=== PATIENT | female | born 1965 | race Caucasian/White ===

== ENCOUNTER 2022-09-05 10:17 | Emergency (ER) | payer MEDICAID ==
[~2022-09-05] VITALS: Ht 162.6 cm; Wt 100.0 kg
[2022-09-05] MEDS ORDERED: sulfamethoxazole/trimethoprim DS (800/160mg) tablet PO ONE (10:30)
[2022-09-05 10:34] VITALS: BP 141/81
[2022-09-05] MEDS ORDERED: SULF1TAB49 PO (10:44)
== END 2022-09-05 13:07 | disposition home or self-care (01) ==
LOC: ER 10:18
DX: L03.116 Cellulitis of left lower limb (principal)
CPT/HCPCS: 99283

== ENCOUNTER 2022-09-07 18:38 | Inpatient (IN) | payer MEDICAID ==
[~2022-09-07] VITALS: Ht 162.6 cm; Wt 116.8 kg
[~2022-09-07 18:38] MED LIST: SULF1TAB49 PO
[2022-09-08] MEDS ORDERED: ondansetron/PF 4mg/2ml inj IV ONE ×2 (00:40→03:10)
[2022-09-08] MEDS ORDERED: normal saline 1000ML IV soln IVB ONE (00:40)
[2022-09-08 01:45] LABS: BASOPHILS % (AUTO) 0.2 % (0-1); EOSINOPHILS # (AUTO) 0.1 X10'3 (0-0.9); EOSINOPHILS % (AUTO) 0.4 % (0-6); HEMATOCRIT 34.3 % (35.0-45.0); HEMOGLOBIN 11.4 g/dl (12.0-16.0); LYMPHOCYTES # (AUTO) 1.1 X10'3 (1.1-4.8); LYMPHOCYTES % (AUTO) 6.9 % (21-51); MEAN CORPUSCULAR HEMOGLOBIN 29.1 PG (27.0-31.0); MEAN CORPUSCULAR HGB CONC 33.3 g/dL (33.0-36.5); MEAN CORPUSCULAR VOLUME 87.4 FL (78-98); MEAN PLATELET VOLUME 7.4 FL (7.4-10.4); MONOCYTES # (AUTO) 1.5 X10'3 (0-0.9); MONOCYTES % (AUTO) 9.4 % (2-12); NEUTROPHILS % (AUTO) 83.1 % (42-75); PLATELET COUNT 379 X10'3 (140-440); RED BLOOD COUNT 3.92 X10'6 (4.20-5.60); WHITE BLOOD COUNT 15.6 X10'3 (4.5-11.0)
[2022-09-08 02:00] LABS: ALANINE AMINOTRANSFERASE 35 U/L (12-78); ALBUMIN 2.8 G/DL (3.4-5.0); ALBUMIN/GLOBULIN RATIO 0.6 (1.1-1.5); ALKALINE PHOSPHATASE 239 IU/L (46-116); ANION GAP 15 (8-16); ASPARTATE AMINO TRANSFERASE 45 U/L (10-37); BILIRUBIN,TOTAL 0.4 MG/DL (0.1-1.0); BLOOD UREA NITROGEN 93 MG/DL (7-18); BUN/CREATININE RATIO 9.8 (6.6-38.0); CALCIUM 7.6 MG/DL (8.5-10.1); CHLORIDE 92 MMOL/L (99-107); CREATININE 9.46 MG/DL (0.40-0.90); GLUCOSE 121 MG/DL (70-104); POTASSIUM 3.7 MMOL/L (3.5-5.1); SODIUM 128 MMOL/L (135-145); TOTAL CARBON DIOXIDE 21.3 MMOL/L (24-32); TOTAL PROTEIN 7.3 G/DL (6.4-8.2); eGFR 4 ML/MIN
[2022-09-08] MEDS ORDERED: LIDOcaine Viscous 15ml cup MM ONE (03:10)
[2022-09-08] MEDS ORDERED: mag hydrox/Alum hydrox/simeth 30ml oral suspension PO ONE ×2 (03:10→03:45)
[2022-09-08] MEDS ORDERED: LIDOcaine 2% 10ml TOPICAL JELLY (Urojet) TP ONE (03:10)
[2022-09-08] MEDS ORDERED: LidoCAINE 2% Topical Jelly 11mL syringe TOP ONE (03:30)
[2022-09-08] MEDS ORDERED: magnesium Cl slow-release 64mg tablet PO PRN (03:50)
[2022-09-08] MEDS ORDERED: potassium Cl 40MEQ/1/2NS 520ml 520 ML IV PRN (03:50)
[2022-09-08] MEDS ORDERED: potassium Cl 20 mEq SR tablet PO PRN ×2 (03:50)
[2022-09-08] MEDS ORDERED: magnesium 4gm in 100ml NS 100 ML IV PRN (03:50)
[2022-09-08] MEDS: normal saline 1000ml 1,000 ML IV SCH ×3 (04:39→14:25)
[2022-09-08 06:59] LABS: MAGNESIUM 2.9 MG/DL (1.5-2.4)
[2022-09-08 07:00] VITALS: BP 128/67
[2022-09-08] MEDS: K and/or MAG REPLACEMENT MC SCH ×2 (08:00→20:00)
[2022-09-08] MEDS: ceFAZolin/D5W- 1GM premix 50 ML IV SCH ×3 (09:00→19:24)
--- NOTE | 2022-09-08 09:46 | NUR ---
0410 zofran reassessment not done by noc rn
[2022-09-08] MEDS: ondansetron/PF 4mg/2ml inj IV PRN (10:28)
[2022-09-08 11:00] VITALS: BP 116/68
[2022-09-08] MEDS: proCHLORperazine 10 MG/2 ml inj IV PRN (11:04)
[2022-09-08] MEDS ORDERED: acetaminophen 325mg tablet PO PRN (11:10)
[2022-09-08] MEDS ORDERED: SULF1TAB45 PO (12:50)
[2022-09-08] MEDS ORDERED: CEPH-585 PO (12:50)
[2022-09-08] MEDS ORDERED: IBUP-1984 PO (12:52)
[2022-09-08] MEDS: clindamycin 600mg/D5W 50ml 50 ML IV SCH ×2 (14:21→19:28)
[2022-09-08] MEDS ORDERED: FLU VACC QS2022-23(6MOS UP)/PF 60 MCG/0.5 ML SYRINGE IMVAC ONE (15:00)
[2022-09-08 15:35] VITALS: BP 111/51
[2022-09-08 16:21] LABS: ALBUMIN 2.2 G/DL (3.4-5.0); ANION GAP 15 (8-16); BLOOD UREA NITROGEN 92 MG/DL (7-18); BUN/CREATININE RATIO 9.4 (6.6-38.0); CALCIUM 6.9 MG/DL (8.5-10.1); CHLORIDE 94 MMOL/L (99-107); CREATININE 9.76 MG/DL (0.40-0.90); GLUCOSE 127 MG/DL (70-104); SODIUM 127 MMOL/L (135-145); TOTAL CARBON DIOXIDE 18.5 MMOL/L (24-32); eGFR 4 ML/MIN
[2022-09-08 17:47] LABS: CLARITY,URINE CLOUDY (Clear); COLOR,URINE YELLOW (Yellow); GLUCOSE, URINE NEGATIVE (Neg); KETONES,URINE NEGATIVE (Neg); LEUKOCYTE ESTERASE ,URINE NEGATIVE (Neg); NITRITES, URINE NEGATIVE (Neg); OCCULT BLOOD,URINE LARGE (Neg); PROTEIN,URINE 30 mg/dl (Neg); UROBILINOGEN,URINE 0.2 E.U/dL (0.2-1.0)
[2022-09-08 18:00] VITALS: BP 119/60
[2022-09-08 18:02] LABS: UA COLLECTION TYPE FOLEY CATH
[2022-09-08 18:15] LABS: SQUAMOUS EPITHELIAL CELL,UR MODERATE /LPF (FEW)
[2022-09-08 18:17] LABS: RBC,URINE 50-100 /HPF (0-2)
[2022-09-08 18:18] LABS: BACTERIA,URINE 1+ /HPF (Neg)
[2022-09-08 18:19] LABS: TRANSITIONAL EPI CELLS,URINE FEW /HPF; WBC,URINE 0-4 /HPF (0-4)
[2022-09-08 18:20] LABS: AMORPHOUS URATES 2+
[2022-09-08 18:45] LABS: UA EOSINOPHILS NO EOS /HPF
[2022-09-08] MEDS: Melatonin 3mg tablet PO SCH (19:20)
--- NOTE | 2022-09-08 23:10 | NUR ---
Called Dr. Rascon to make her aware that the patient has blood coming from the vaginal area, and that there is no blood in the smith catheter. Dr. Rascon stated to monitor and order hemoglobin with am labs, telephone repeat back given.
[2022-09-09] MEDS: normal saline 1000ml 1,000 ML IV SCH ×4 (00:48→23:29)
[2022-09-09] MEDS: clindamycin 600mg/D5W 50ml 50 ML IV SCH ×4 (02:00→19:45)
[2022-09-09 03:15] VITALS: BP 122/71
--- NOTE | 2022-09-09 04:55 | NUR ---
Patient has no signs or symptoms of bleeding. Patient smith catheter intact and patent.
[2022-09-09 06:00] VITALS: BP 117/61
[2022-09-09] MEDS: ondansetron/PF 4mg/2ml inj IV PRN (07:45)
[2022-09-09] MEDS: K and/or MAG REPLACEMENT MC SCH ×2 (08:00→20:00)
[2022-09-09 08:03] LABS: BASOPHILS % (AUTO) 0.4 % (0-1); EOSINOPHILS # (AUTO) 0.1 X10'3 (0-0.9); EOSINOPHILS % (AUTO) 1.1 % (0-6); HEMOGLOBIN 10.5 g/dl (12.0-16.0); LYMPHOCYTES # (AUTO) 1.4 X10'3 (1.1-4.8); MEAN CORPUSCULAR VOLUME 87.9 FL (78-98); MEAN PLATELET VOLUME 7.6 FL (7.4-10.4); MONOCYTES # (AUTO) 1.4 X10'3 (0-0.9); NEUTROPHILS # (AUTO) 9.7 X10'3 (1.8-7.7); NEUTROPHILS % (AUTO) 76.5 % (42-75); PLATELET COUNT 428 X10'3 (140-440); RED BLOOD COUNT 3.64 X10'6 (4.20-5.60); RED CELL DISTRIBUTION WIDTH 14.3 % (11.5-14.5); WHITE BLOOD COUNT 12.7 X10'3 (4.5-11.0)
[2022-09-09 08:10] LABS: ALBUMIN 2.3 G/DL (3.4-5.0); ANION GAP 15 (8-16); BLOOD UREA NITROGEN 95 MG/DL (7-18); BUN/CREATININE RATIO 9.6 (6.6-38.0); CALCIUM 7.2 MG/DL (8.5-10.1); CHLORIDE 97 MMOL/L (99-107); CREATININE 9.88 MG/DL (0.40-0.90); GLUCOSE 92 MG/DL (70-104); POTASSIUM 4.3 MMOL/L (3.5-5.1); SODIUM 132 MMOL/L (135-145); TOTAL CARBON DIOXIDE 20.1 MMOL/L (24-32); eGFR 4 ML/MIN
[2022-09-09] MEDS: proCHLORperazine 10 MG/2 ml inj IV PRN ×2 (09:26→19:49)
--- NOTE | 2022-09-09 09:26 | NUR ---
Emailed pharmacy for missing AM Ancef
--- NOTE | 2022-09-09 10:10 | NUR ---
Advised Dr Khan of vaginal bleeding. No pain associated with bleeding. Dr Khan ordered CT of abd/pelvis, no contrast.
[2022-09-09] MEDS: ceFAZolin/D5W- 1GM premix 50 ML IV SCH ×3 (10:23→23:29)
[2022-09-09 10:30] VITALS: BP 115/65
[2022-09-09 14:30] VITALS: BP 121/68
--- NOTE | 2022-09-09 16:45 | NUR ---
Per Dr Khan: ok to cancel duplicate UA.
[2022-09-09 18:00] VITALS: BP 141/64
--- NOTE | 2022-09-09 18:00 | NUR ---
Student documentation: I have reviewed and agree with all interventions, assessments performed and documented by Ann Marie.
--- NOTE | 2022-09-09 18:30 | NUR ---
Patient in room PCU 3026. I have received report from Sharifa OSULLIVAN and had the opportunity to ask questions and assume patient care.
--- NOTE | 2022-09-09 19:23 | NUR ---
Student Medication Administration: For this medication-pass time frame, all medication were reviewed, dispensed, administered and documented per hospital policy by Ann Marie.
[2022-09-09] MEDS: Melatonin 3mg tablet PO SCH (21:49)
[2022-09-09 22:00] VITALS: BP 131/64
[2022-09-10] MEDS: clindamycin 600mg/D5W 50ml 50 ML IV SCH ×4 (01:44→19:48)
[2022-09-10 02:00] VITALS: BP 120/66
[2022-09-10] MEDS: proCHLORperazine 10 MG/2 ml inj IV PRN ×3 (02:11→22:17)
[2022-09-10 02:16] LABS: CLARITY,URINE CLOUDY (Clear); COLOR,URINE YELLOW (Yellow); GLUCOSE, URINE NEGATIVE (Neg); KETONES,URINE NEGATIVE (Neg); LEUKOCYTE ESTERASE ,URINE NEGATIVE (Neg); NITRITES, URINE NEGATIVE (Neg); OCCULT BLOOD,URINE LARGE (Neg); PROTEIN,URINE 30 mg/dl (Neg); UROBILINOGEN,URINE 0.2 E.U/dL (0.2-1.0)
[2022-09-10 02:20] LABS: UA COLLECTION TYPE FOLEY CATH
[2022-09-10 02:31] LABS: RBC,URINE 20-50 /HPF (0-2)
[2022-09-10 02:32] LABS: SQUAMOUS EPITHELIAL CELL,UR FEW /LPF (FEW)
[2022-09-10 02:34] LABS: TOTAL PROTEIN,URINE RANDOM 88.2 MG/DL
[2022-09-10 02:35] LABS: BACTERIA,URINE FEW /HPF (Neg); TRANSITIONAL EPI CELLS,URINE FEW /HPF
[2022-09-10 02:36] LABS: CELLULAR CAST 0-4 /LPF (NEGATIVE); COARSE GRANULAR CAST 0-3 /LPF (NEGATIVE); RENAL CELLS, URINE FEW /HPF
[2022-09-10 03:06] LABS: UA EOSINOPHILS NO EOS /HPF
[2022-09-10] MEDS: normal saline 1000ml 1,000 ML IV SCH ×3 (03:28→16:51)
[2022-09-10 05:45] LABS: BASOPHILS # (AUTO) 0.1 X10'3 (0-0.2); BASOPHILS % (AUTO) 0.5 % (0-1); EOSINOPHILS # (AUTO) 0.2 X10'3 (0-0.9); EOSINOPHILS % (AUTO) 1.6 % (0-6); HEMATOCRIT 30.2 % (35.0-45.0); HEMOGLOBIN 10.2 g/dl (12.0-16.0); LYMPHOCYTES # (AUTO) 1.1 X10'3 (1.1-4.8); MEAN CORPUSCULAR HEMOGLOBIN 29.8 PG (27.0-31.0); MEAN CORPUSCULAR HGB CONC 33.9 g/dL (33.0-36.5); MEAN CORPUSCULAR VOLUME 87.8 FL (78-98); MONOCYTES # (AUTO) 1.3 X10'3 (0-0.9); MONOCYTES % (AUTO) 9.5 % (2-12); NEUTROPHILS # (AUTO) 11.1 X10'3 (1.8-7.7); NEUTROPHILS % (AUTO) 80.4 % (42-75); PLATELET COUNT 428 X10'3 (140-440); RED BLOOD COUNT 3.44 X10'6 (4.20-5.60); RED CELL DISTRIBUTION WIDTH 14.5 % (11.5-14.5); WHITE BLOOD COUNT 13.8 X10'3 (4.5-11.0)
[2022-09-10 05:53] LABS: ALBUMIN 2.1 G/DL (3.4-5.0); ANION GAP 13 (8-16); BLOOD UREA NITROGEN 100 MG/DL (7-18); CALCIUM 7.2 MG/DL (8.5-10.1); CHLORIDE 101 MMOL/L (99-107); CREATININE 9.98 MG/DL (0.40-0.90); GLUCOSE 101 MG/DL (70-104); MAGNESIUM 2.8 MG/DL (1.5-2.4); POTASSIUM 4.4 MMOL/L (3.5-5.1); SODIUM 132 MMOL/L (135-145); TOTAL CARBON DIOXIDE 17.9 MMOL/L (24-32); eGFR 4 ML/MIN
--- NOTE | 2022-09-10 06:01 | NUR ---
Problems reprioritized. Patient report given, questions answered & plan of care reviewed with SAM OSULLIVAN.
[2022-09-10 07:00] VITALS: BP 132/73
[2022-09-10 07:28] LABS: PLATELET ESTIMATE NORMAL; TOTAL CELLS COUNTED 100
[2022-09-10] MEDS: ceFAZolin/D5W- 1GM premix 50 ML IV SCH ×2 (08:00→16:12)
[2022-09-10] MEDS: K and/or MAG REPLACEMENT MC SCH ×2 (08:00→19:49)
[2022-09-10 11:00] VITALS: BP 145/71
[2022-09-10 15:00] VITALS: BP 129/64
[2022-09-10 18:00] VITALS: BP 140/64
--- NOTE | 2022-09-10 18:14 | NUR ---
Problems reprioritized. Patient report given, questions answered & plan of care reviewed with Porter RN.Patient resting in bed in no acute distress.
--- NOTE | 2022-09-10 18:46 | NUR ---
Patient in room PCU 3026. I have received report from AMITA OSULLIVAN and had the opportunity to ask questions and assume patient care.
[2022-09-10] MEDS: Melatonin 3mg tablet PO SCH (19:55)
[2022-09-10 22:00] VITALS: BP 150/71
[2022-09-11 02:00] VITALS: BP 145/70
[2022-09-11] MEDS: clindamycin 600mg/D5W 50ml 50 ML IV SCH ×4 (02:00→19:59)
[2022-09-11] MEDS: normal saline 1000ml 1,000 ML IV SCH ×4 (04:46→20:08)
[2022-09-11 05:47] LABS: BASOPHILS # (AUTO) 0.1 X10'3 (0-0.2); BASOPHILS % (AUTO) 0.8 % (0-1); EOSINOPHILS # (AUTO) 0.1 X10'3 (0-0.9); EOSINOPHILS % (AUTO) 0.9 % (0-6); HEMATOCRIT 30.3 % (35.0-45.0); HEMOGLOBIN 9.9 g/dl (12.0-16.0); LYMPHOCYTES # (AUTO) 1.2 X10'3 (1.1-4.8); LYMPHOCYTES % (AUTO) 7.6 % (21-51); MEAN CORPUSCULAR HEMOGLOBIN 28.8 PG (27.0-31.0); MEAN CORPUSCULAR HGB CONC 32.7 g/dL (33.0-36.5); MEAN CORPUSCULAR VOLUME 88.2 FL (78-98); MONOCYTES # (AUTO) 1.2 X10'3 (0-0.9); MONOCYTES % (AUTO) 7.8 % (2-12); NEUTROPHILS % (AUTO) 82.9 % (42-75); PLATELET COUNT 427 X10'3 (140-440); RED BLOOD COUNT 3.44 X10'6 (4.20-5.60); RED CELL DISTRIBUTION WIDTH 14.5 % (11.5-14.5); WHITE BLOOD COUNT 15.7 X10'3 (4.5-11.0)
[2022-09-11 06:08] LABS: ALBUMIN 2.1 G/DL (3.4-5.0); ANION GAP 16 (8-16); BLOOD UREA NITROGEN 95 MG/DL (7-18); BUN/CREATININE RATIO 9.4 (6.6-38.0); CALCIUM 7.7 MG/DL (8.5-10.1); CHLORIDE 103 MMOL/L (99-107); CREATININE 10.16 MG/DL (0.40-0.90); GLUCOSE 112 MG/DL (70-104); MAGNESIUM 2.6 MG/DL (1.5-2.4); POTASSIUM 4.6 MMOL/L (3.5-5.1); SODIUM 135 MMOL/L (135-145); TOTAL CARBON DIOXIDE 15.9 MMOL/L (24-32); eGFR 4 ML/MIN
--- NOTE | 2022-09-11 06:22 | NUR ---
Patient in room PCU 3026. I have received report from Georgette OSULLIVAN and had the opportunity to ask questions and assume patient care.Patient resting in bed in no acute distress.
--- NOTE | 2022-09-11 06:33 | NUR ---
Problems reprioritized. Patient report given, questions answered & plan of care reviewed with TARAH OSULLIVAN.
[2022-09-11 07:00] VITALS: BP 142/74
[2022-09-11] MEDS ORDERED: FLU VACC QS2022-23(6MOS UP)/PF 60 MCG/0.5 ML SYRINGE IMVAC ONE (08:00)
[2022-09-11] MEDS: K and/or MAG REPLACEMENT MC SCH ×2 (08:00→20:00)
--- NOTE | 2022-09-11 09:00 | NUR ---
PRESSURE ULCER EDUCATION: DEFINITION: A pressure ulcer is an area of skin that breaks down when you stay in one position too long. The constant pressure against the skin reduces the blood flow to that area and the affected tissue dies. CAUSES: "Being bedridden or in a wheelchair "Fragile skin "Having a chronic condition, such as diabetes or vascular disease "Inability to move certain parts of your body without assistance "Older age "Incontinence of urine or stool SYMPTOMS: "A reddened area that DOES NOT turn white when pressed on - this can be the beginning of a pressure ulcer "A blister, deep sore or a crater - these can be advanced pressure ulcers FIRST AID: "Relieve the pressure on this area "Keep the area clean and dry "Call your primary doctor if you see any of the above symptoms "DO NOT massage the area "DO NOT use a donut shaped or ring shaped pillow- these actually interfere with the blood flow and cause complications PREVENTION: "Check for pressure ulcers everyday "Change position at least every two hours to relieve pressure "Use items that help relieve pressure- pillows, sheepskin, foam padding, and powders. "Keep skin clean and dry "Eat healthy well balanced meals "Exercise daily IF YOU SEE ANY OF THESE SYMPTOMS WHILE IN THE HOSPITAL - TELL YOUR NURSE IMMEDIATELY. IF YOU SEE ANY OF THESE SYMPTOMS WHILE AT HOME OR HAVE ANY QUESTIONS OR CONCERNS ABOUT PRESSURE ULCERS - CALL YOUR PRIMARY DOCTOR IMMEDIATELY. Addendum: 09/11/22 at 0900 by Annmarie Moore RN Amended: Links added.
[2022-09-11] MEDS: ceFAZolin/D5W- 1GM premix 50 ML IV SCH ×3 (09:06→14:54)
[2022-09-11 11:00] VITALS: BP 152/93
[2022-09-11] MEDS: proCHLORperazine 10 MG/2 ml inj IV PRN ×2 (11:46→19:59)
[2022-09-11 15:00] VITALS: BP 152/73
--- NOTE | 2022-09-11 15:29 | NUR ---
Page Sent promotional table spacer PAGER ID: [phone] MESSAGE: [id number]. DOROTHY Pt has been HTN all day with systolic in 140s-150s. I thought it was high at 1100 because she had just finished vomiting. Aria @[id number] (146 character message out of a maximum of 240) CLOSE [X]
--- NOTE | 2022-09-11 18:20 | NUR ---
Problems reprioritized. Patient report given, questions answered & plan of care reviewed with [place] RN. Patient resting in bed in no acute distress.
[2022-09-11 19:36] VITALS: BP 171/77
[2022-09-11] MEDS: Melatonin 3mg tablet PO SCH (19:59)
[2022-09-11 22:00] VITALS: BP 113/62
[2022-09-12] MEDS: ceFAZolin/D5W- 1GM premix 50 ML IV SCH (00:14)
[2022-09-12] MEDS: ondansetron/PF 4mg/2ml inj IV PRN (01:36)
[2022-09-12] MEDS: clindamycin 600mg/D5W 50ml 50 ML IV SCH ×2 (01:37→07:41)
[2022-09-12] MEDS: normal saline 1000ml 1,000 ML IV SCH ×3 (01:48→15:30)
[2022-09-12 06:07] LABS: BASOPHILS # (AUTO) 0.1 X10'3 (0-0.2); BASOPHILS % (AUTO) 0.4 % (0-1); EOSINOPHILS # (AUTO) 0.2 X10'3 (0-0.9); HEMATOCRIT 29.9 % (35.0-45.0); HEMOGLOBIN 9.8 g/dl (12.0-16.0); LYMPHOCYTES # (AUTO) 1.1 X10'3 (1.1-4.8); LYMPHOCYTES % (AUTO) 6.3 % (21-51); MEAN CORPUSCULAR HEMOGLOBIN 29.5 PG (27.0-31.0); MEAN CORPUSCULAR HGB CONC 32.8 g/dL (33.0-36.5); MEAN CORPUSCULAR VOLUME 89.9 FL (78-98); MEAN PLATELET VOLUME 6.6 FL (7.4-10.4); MONOCYTES # (AUTO) 1.4 X10'3 (0-0.9); MONOCYTES % (AUTO) 7.9 % (2-12); NEUTROPHILS # (AUTO) 14.8 X10'3 (1.8-7.7); NEUTROPHILS % (AUTO) 84.4 % (42-75); PLATELET COUNT 380 X10'3 (140-440); RED BLOOD COUNT 3.32 X10'6 (4.20-5.60); RED CELL DISTRIBUTION WIDTH 14.5 % (11.5-14.5); WHITE BLOOD COUNT 17.6 X10'3 (4.5-11.0)
[2022-09-12 06:14] LABS: ANION GAP 12 (8-16); BLOOD UREA NITROGEN 88 MG/DL (7-18); BUN/CREATININE RATIO 9.1 (6.6-38.0); CALCIUM 8.1 MG/DL (8.5-10.1); CHLORIDE 106 MMOL/L (99-107); CREATININE 9.65 MG/DL (0.40-0.90); GLUCOSE 104 MG/DL (70-104); MAGNESIUM 2.5 MG/DL (1.5-2.4); POTASSIUM 4.8 MMOL/L (3.5-5.1); SODIUM 136 MMOL/L (135-145); eGFR 4 ML/MIN
[2022-09-12 07:00] VITALS: BP 152/80
[2022-09-12] MEDS: K and/or MAG REPLACEMENT MC SCH ×2 (08:00→20:00)
[2022-09-12] MEDS ORDERED: vancomycin/NS 1 GM ADD-VANTAGE 250 ML IV ONE (09:30)
[2022-09-12] MEDS ORDERED: vancomycin/NS 1 GM ADD-VANTAGE 250 ML IV PRN (09:40)
[2022-09-12] MEDS ORDERED: hydrALAZINE 20mg/ml inj. IV PRN (10:50)
--- NOTE | 2022-09-12 10:57 | NUR ---
I spoke with personal secretary at [facility] and she said she would fax over last labs.
[2022-09-12 11:00] VITALS: BP 145/76
[2022-09-12] MEDS: piperacillin/tazo 3.375gm/50ml 50 ML IV SCH ×2 (11:43→16:29)
[2022-09-12 15:00] VITALS: BP 142/72
[2022-09-12] MEDS: proCHLORperazine 10 MG/2 ml inj IV PRN ×2 (15:30→22:09)
[2022-09-12 18:00] VITALS: BP 151/76
--- NOTE | 2022-09-12 18:00 | NUR ---
Patient in room PCU 3026. I have received report from Aria OSULLIVAN and had the opportunity to ask questions and assume patient care.
--- NOTE | 2022-09-12 18:21 | NUR ---
Problems reprioritized. Patient report given, questions answered & plan of care reviewed with Jennifer OSULLIVAN. Patient resting in bed in no acute distress.
[2022-09-12 22:00] VITALS: BP 148/79
[2022-09-12] MEDS: Melatonin 3mg tablet PO SCH (22:02)
[2022-09-13] MEDS: normal saline 1000ml 1,000 ML IV SCH ×4 (00:49→18:08)
[2022-09-13 02:00] VITALS: BP 146/81
[2022-09-13] MEDS: proCHLORperazine 10 MG/2 ml inj IV PRN ×3 (04:58→21:21)
[2022-09-13 06:00] VITALS: BP 144/70
[2022-09-13 06:16] LABS: BASOPHILS # (AUTO) 0.1 X10'3 (0-0.2); BASOPHILS % (AUTO) 0.5 % (0-1); EOSINOPHILS # (AUTO) 0.3 X10'3 (0-0.9); EOSINOPHILS % (AUTO) 1.7 % (0-6); HEMATOCRIT 28.7 % (35.0-45.0); HEMOGLOBIN 9.6 g/dl (12.0-16.0); LYMPHOCYTES # (AUTO) 1.3 X10'3 (1.1-4.8); MEAN CORPUSCULAR HEMOGLOBIN 29.6 PG (27.0-31.0); MEAN CORPUSCULAR HGB CONC 33.6 g/dL (33.0-36.5); MEAN CORPUSCULAR VOLUME 88.1 FL (78-98); MEAN PLATELET VOLUME 6.7 FL (7.4-10.4); MONOCYTES # (AUTO) 1.4 X10'3 (0-0.9); MONOCYTES % (AUTO) 7.4 % (2-12); NEUTROPHILS # (AUTO) 15.2 X10'3 (1.8-7.7); NEUTROPHILS % (AUTO) 83.4 % (42-75); PLATELET COUNT 355 X10'3 (140-440); RED BLOOD COUNT 3.25 X10'6 (4.20-5.60); RED CELL DISTRIBUTION WIDTH 14.2 % (11.5-14.5); WHITE BLOOD COUNT 18.3 X10'3 (4.5-11.0)
[2022-09-13 06:24] LABS: ANION GAP 15 (8-16); BLOOD UREA NITROGEN 90 MG/DL (7-18); BUN/CREATININE RATIO 9.5 (6.6-38.0); CALCIUM 8.1 MG/DL (8.5-10.1); CHLORIDE 106 MMOL/L (99-107); CREATININE 9.46 MG/DL (0.40-0.90); GLUCOSE 101 MG/DL (70-104); POTASSIUM 4.6 MMOL/L (3.5-5.1); SODIUM 137 MMOL/L (135-145); TOTAL CARBON DIOXIDE 15.6 MMOL/L (24-32); VANCOMYCIN,RANDOM 9.5 UG/ML; eGFR 4 ML/MIN
--- NOTE | 2022-09-13 06:35 | NUR ---
Problems reprioritized. Patient report given, questions answered & plan of care reviewed with Yary OSULLIVAN.
[2022-09-13] MEDS ORDERED: vancomycin/NS 1 GM ADD-VANTAGE 250 ML IV ONE (07:20)
[2022-09-13] MEDS: piperacillin/tazo 3.375gm/50ml 50 ML IV SCH ×2 (07:44→21:18)
[2022-09-13] MEDS: K and/or MAG REPLACEMENT MC SCH ×2 (08:00→20:00)
[2022-09-13] MEDS ORDERED: HYDROcodone/acetaminophen 5mg/325mg tablet PO PRN (10:25)
[2022-09-13] MEDS ORDERED: HYDROcodone/acetaminophen 10/325mg tab PO PRN (10:25)
--- NOTE | 2022-09-13 12:26 | NUR ---
Initial: Per H&P pt recently dx with left leg cellulitis presented with c/o N/V, admit for BEAU with hyponatremia and cellulitis. Pt seen by wound care, per report pt with LLE cellulitis and skin is intact. Thoracic Surgeon following for renal status. Pt currently on a renal diet with fluctuating PO intake, documented with average 66% PO intake since admit which meets 87% estimated energy needs and 100% estimated protein needs. Noted pt up to average 75% PO intake of two most recent meals. LB 09/12. No nutrition intervention implemented at this time. Will continue to follow. Recommendations: 1) Liberalize to regular diet once renal function improves 2) Routine bowel care 3) Weekly scaled weights Addendum: 09/13/22 at [address] Amended: Links added.
[2022-09-13 15:00] VITALS: BP 137/68
--- NOTE | 2022-09-13 15:22 | NUR ---
WOUND INFECTION EDUCATION PROVIDED BY WOUND CARE 1. Patient instructed to call their primary doctor, or go the ED immediately if any of the following symptoms occur: * Increased pain in wound * Increase in drainage from the wound * Redness in the skin surrounding the wound * Warmth in the skin surrounding the wound * Bleeding from the wound * Temperature of 101 or greater 2. If any of these occur while in the hospital tell a nurse immediately. Addendum: 09/13/22 at 1522 by Smitha Sidhu LVN Amended: Links added.
[2022-09-13 18:00] VITALS: BP 143/94
--- NOTE | 2022-09-13 18:00 | NUR ---
Patient in room PCU 3026. I have received report from Yary OSULLIVAN and had the opportunity to ask questions and assume patient care.
[2022-09-13] MEDS: Melatonin 3mg tablet PO SCH (21:17)
[2022-09-13 22:00] VITALS: BP 136/85
[2022-09-14] MEDS: normal saline 1000ml 1,000 ML IV SCH ×2 (00:56→07:55)
[2022-09-14] MEDS ORDERED: VANCOMYCIN LEVEL IV SCH (03:00)
[2022-09-14 06:00] VITALS: BP 160/84
[2022-09-14] MEDS: proCHLORperazine 10 MG/2 ml inj IV PRN ×3 (06:07→18:02)
[2022-09-14 06:27] LABS: VANCOMYCIN,RANDOM 19.5 UG/ML
--- NOTE | 2022-09-14 06:31 | NUR ---
Problems reprioritized. Patient report given, questions answered & plan of care reviewed with Yary OSULLIVAN.
[2022-09-14 07:34] LABS: BASOPHILS # (AUTO) 0.1 X10'3 (0-0.2); BASOPHILS % (AUTO) 0.7 % (0-1); EOSINOPHILS # (AUTO) 0.3 X10'3 (0-0.9); EOSINOPHILS % (AUTO) 1.9 % (0-6); HEMATOCRIT 28.2 % (35.0-45.0); LYMPHOCYTES # (AUTO) 1.1 X10'3 (1.1-4.8); LYMPHOCYTES % (AUTO) 6.2 % (21-51); MEAN CORPUSCULAR HEMOGLOBIN 28.8 PG (27.0-31.0); MEAN CORPUSCULAR HGB CONC 31.9 g/dL (33.0-36.5); MEAN CORPUSCULAR VOLUME 90.2 FL (78-98); MEAN PLATELET VOLUME 6.8 FL (7.4-10.4); MONOCYTES # (AUTO) 1.2 X10'3 (0-0.9); MONOCYTES % (AUTO) 7.4 % (2-12); NEUTROPHILS # (AUTO) 14.1 X10'3 (1.8-7.7); NEUTROPHILS % (AUTO) 83.8 % (42-75); PLATELET COUNT 298 X10'3 (140-440); RED BLOOD COUNT 3.13 X10'6 (4.20-5.60); RED CELL DISTRIBUTION WIDTH 14.3 % (11.5-14.5); WHITE BLOOD COUNT 16.8 X10'3 (4.5-11.0)
[2022-09-14 07:35] LABS: ALBUMIN 1.9 G/DL (3.4-5.0); ALBUMIN/GLOBULIN RATIO 0.4 (1.1-1.5); ALKALINE PHOSPHATASE 116 IU/L (46-116); ANION GAP 13 (8-16); ASPARTATE AMINO TRANSFERASE 24 U/L (10-37); BILIRUBIN,TOTAL 0.3 MG/DL (0.1-1.0); BLOOD UREA NITROGEN 88 MG/DL (7-18); BUN/CREATININE RATIO 9.5 (6.6-38.0); CALCIUM 8.2 MG/DL (8.5-10.1); CHLORIDE 108 MMOL/L (99-107); CREATININE 9.27 MG/DL (0.40-0.90); GLUCOSE 89 MG/DL (70-104); MAGNESIUM 2.3 MG/DL (1.5-2.4); SODIUM 138 MMOL/L (135-145); TOTAL CARBON DIOXIDE 16.9 MMOL/L (24-32); TOTAL PROTEIN 6.3 G/DL (6.4-8.2); eGFR 4 ML/MIN
[2022-09-14 07:48] LABS: ALANINE AMINOTRANSFERASE < 6 U/L (12-78); PHOSPHORUS 9.2 MG/DL (2.3-4.5)
[2022-09-14] MEDS: piperacillin/tazo 3.375gm/50ml 50 ML IV SCH (07:55)
[2022-09-14] MEDS: K and/or MAG REPLACEMENT MC SCH ×2 (08:00→20:00)
--- NOTE | 2022-09-14 09:55 | NUR ---
sent to [facility]: [id number] Flores: pt requesting neosporin ointment for scabs around mouth. thank you. Yary OSULLIVAN [id number]
[2022-09-14 11:00] VITALS: BP 152/77
[2022-09-14] MEDS ORDERED: bumetanide 0.25mg/ml 4ml vial IV ONE (12:45)
[2022-09-14 18:00] VITALS: BP 162/79
--- NOTE | 2022-09-14 18:00 | NUR ---
Patient in room PCU 3026. I have received report from Yary OSULLIVAN and had the opportunity to ask questions and assume patient care.
[2022-09-14 22:00] VITALS: BP 142/78
[2022-09-14] MEDS: ondansetron/PF 4mg/2ml inj IV PRN (22:04)
[2022-09-14] MEDS: Melatonin 3mg tablet PO SCH (22:05)
[2022-09-14] MEDS: bumetanide 0.25mg/ml 4ml vial IV SCH (22:05)
[2022-09-14] MEDS: linezolid 600mg/300ml PREMIX 300 ML IV SCH (22:57)
[2022-09-15 02:00] VITALS: BP 132/74
--- NOTE | 2022-09-15 06:50 | NUR ---
Patient in room PCU 3026. I have received report from Jennifer OSULLIVAN and had the opportunity to ask questions and assume patient care. Pt requesting wound care be performed to left leg. [employer] Sales Representative will follow up with wound care.
[2022-09-15 07:00] VITALS: BP 151/81
--- NOTE | 2022-09-15 07:01 | NUR ---
Problems reprioritized. Patient report given, questions answered & plan of care reviewed with Tone GRAMAJO.
[2022-09-15] MEDS: K and/or MAG REPLACEMENT MC SCH ×2 (08:00→20:00)
[2022-09-15] MEDS: linezolid 600mg/300ml PREMIX 300 ML IV SCH ×2 (08:19→22:45)
[2022-09-15] MEDS: bumetanide 0.25mg/ml 4ml vial IV SCH ×2 (08:19→22:46)
[2022-09-15 09:01] LABS: BASOPHILS # (AUTO) 0.1 X10'3 (0-0.2); BASOPHILS % (AUTO) 0.8 % (0-1); EOSINOPHILS # (AUTO) 0.4 X10'3 (0-0.9); EOSINOPHILS % (AUTO) 2.2 % (0-6); HEMATOCRIT 28.4 % (35.0-45.0); HEMOGLOBIN 9.1 g/dl (12.0-16.0); LYMPHOCYTES # (AUTO) 1.3 X10'3 (1.1-4.8); LYMPHOCYTES % (AUTO) 7.8 % (21-51); MEAN CORPUSCULAR HEMOGLOBIN 29.1 PG (27.0-31.0); MEAN PLATELET VOLUME 6.6 FL (7.4-10.4); MONOCYTES % (AUTO) 5.8 % (2-12); NEUTROPHILS # (AUTO) 14.1 X10'3 (1.8-7.7); NEUTROPHILS % (AUTO) 83.4 % (42-75); PLATELET COUNT 316 X10'3 (140-440); RED BLOOD COUNT 3.12 X10'6 (4.20-5.60); RED CELL DISTRIBUTION WIDTH 14.5 % (11.5-14.5); WHITE BLOOD COUNT 16.9 X10'3 (4.5-11.0)
[2022-09-15 09:36] LABS: ALBUMIN/GLOBULIN RATIO 0.4 (1.1-1.5); ALKALINE PHOSPHATASE 160 IU/L (46-116); ANION GAP 17 (8-16); ASPARTATE AMINO TRANSFERASE 42 U/L (10-37); BILIRUBIN,TOTAL 0.3 MG/DL (0.1-1.0); BLOOD UREA NITROGEN 84 MG/DL (7-18); BUN/CREATININE RATIO 10.2 (6.6-38.0); CALCIUM 8.4 MG/DL (8.5-10.1); CHLORIDE 105 MMOL/L (99-107); CREATININE 8.25 MG/DL (0.40-0.90); GLUCOSE 129 MG/DL (70-104); MAGNESIUM 2.1 MG/DL (1.5-2.4); PHOSPHORUS 8.5 MG/DL (2.3-4.5); POTASSIUM 4.5 MMOL/L (3.5-5.1); SODIUM 137 MMOL/L (135-145); TOTAL PROTEIN 6.6 G/DL (6.4-8.2); eGFR 5 ML/MIN
[2022-09-15 09:51] LABS: ALANINE AMINOTRANSFERASE < 6 U/L (12-78)
--- NOTE | 2022-09-15 09:57 | NUR ---
MD Kennedy Page Sent PAGER ID: [phone] MESSAGE: [id number] Flores- Critical value. Pt CO2 15. Pt breathing on RAJenifer Diana Levine LVN SEND ANOTHER PAGE Addendum: 09/15/22 at [address] Dumont notified. He ordered Sodium Bicarbonate PO 650mg PO TID. Order readback.
[2022-09-15 11:00] VITALS: BP 169/81
[2022-09-15] MEDS: sodium bicarbonate 650mg tablet PO SCH ×3 (11:32→22:01)
--- NOTE | 2022-09-15 13:50 | NUR ---
Noted pt started on Linezolid. Pt seen at bedside for written and verbal low tyramine nutrition therapy education. All of patient's questions were answered at this time. RD contact information provided and pt encouraged to reach out if needed. Pt endorses a good appetite and states no N/V today or yesterday. Pt states she has been unable to finish a full tray since admit and reports consuming mostly 50-75% PO intake of meals. Pt denies food allergies or difficulty chewing/swallowing. Will continue to follow. Addendum: 09/15/22 at [address] Amended: Links added.
--- NOTE | 2022-09-15 17:42 | NUR ---
I AGREE WITH CATE CENTRAL STERILE TECHNICIAN ASSESSMENT.
[2022-09-15 18:00] VITALS: BP 179/89
--- NOTE | 2022-09-15 18:10 | NUR ---
Patient in room PCU 3026. I have received report from Tone GRAMAJO and had the opportunity to ask questions and assume patient care.
--- NOTE | 2022-09-15 18:24 | NUR ---
Problems reprioritized. Patient report given, questions answered & plan of care reviewed with Fartun GRAMAJO.
[2022-09-15 22:00] VITALS: BP 180/91
[2022-09-15] MEDS: Melatonin 3mg tablet PO SCH (22:01)
[2022-09-16 02:00] VITALS: BP 149/80
--- NOTE | 2022-09-16 06:23 | NUR ---
Problems reprioritized. Patient report given, questions answered & plan of care reviewed with Tone GALICIA .
[2022-09-16 06:28] LABS: BASOPHILS # (AUTO) 0.1 X10'3 (0-0.2); BASOPHILS % (AUTO) 0.8 % (0-1); EOSINOPHILS # (AUTO) 0.3 X10'3 (0-0.9); EOSINOPHILS % (AUTO) 2.1 % (0-6); HEMATOCRIT 27.5 % (35.0-45.0); HEMOGLOBIN 8.8 g/dl (12.0-16.0); LYMPHOCYTES # (AUTO) 1.1 X10'3 (1.1-4.8); LYMPHOCYTES % (AUTO) 7.7 % (21-51); MEAN CORPUSCULAR HEMOGLOBIN 29.2 PG (27.0-31.0); MEAN CORPUSCULAR VOLUME 91.1 FL (78-98); MEAN PLATELET VOLUME 6.9 FL (7.4-10.4); MONOCYTES # (AUTO) 1.3 X10'3 (0-0.9); MONOCYTES % (AUTO) 8.8 % (2-12); NEUTROPHILS # (AUTO) 11.9 X10'3 (1.8-7.7); NEUTROPHILS % (AUTO) 80.6 % (42-75); PLATELET COUNT 303 X10'3 (140-440); RED BLOOD COUNT 3.02 X10'6 (4.20-5.60); WHITE BLOOD COUNT 14.7 X10'3 (4.5-11.0)
--- NOTE | 2022-09-16 06:40 | NUR ---
Patient in room PCU 3026. I have received report from Fartun GRAMAJO and had the opportunity to ask questions and assume patient care. Pt sleeping, no distress noted, eyes closed.
[2022-09-16 06:44] LABS: ALANINE AMINOTRANSFERASE < 6 U/L (12-78); ALBUMIN 1.9 G/DL (3.4-5.0); ALBUMIN/GLOBULIN RATIO 0.4 (1.1-1.5); ALKALINE PHOSPHATASE 163 IU/L (46-116); ANION GAP 15 (8-16); ASPARTATE AMINO TRANSFERASE 29 U/L (10-37); BILIRUBIN,TOTAL 0.3 MG/DL (0.1-1.0); BLOOD UREA NITROGEN 81 MG/DL (7-18); BUN/CREATININE RATIO 10.5 (6.6-38.0); CALCIUM 8.4 MG/DL (8.5-10.1); CHLORIDE 107 MMOL/L (99-107); CREATININE 7.69 MG/DL (0.40-0.90); GLUCOSE 95 MG/DL (70-104); MAGNESIUM 2.1 MG/DL (1.5-2.4); PHOSPHORUS 8.8 MG/DL (2.3-4.5); POTASSIUM 4.8 MMOL/L (3.5-5.1); SODIUM 141 MMOL/L (135-145); TOTAL CARBON DIOXIDE 18.8 MMOL/L (24-32); TOTAL PROTEIN 6.4 G/DL (6.4-8.2); eGFR 5 ML/MIN
[2022-09-16 07:00] VITALS: BP 161/87
[2022-09-16] MEDS: bumetanide 0.25mg/ml 4ml vial IV SCH ×2 (07:38→20:47)
[2022-09-16] MEDS: linezolid 600mg/300ml PREMIX 300 ML IV SCH ×2 (07:39→20:46)
--- NOTE | 2022-09-16 07:53 | NUR ---
Agree with Jessica MEDICAL LAB TECH INSTRUCTOR assessment except where I documented my findings.
[2022-09-16] MEDS: K and/or MAG REPLACEMENT MC SCH ×2 (08:00→20:00)
--- NOTE | 2022-09-16 08:00 | NUR ---
Pt refused bed bath. Pt agreed to wound care Addendum: 09/16/22 at 1423 by Tone Levine LVN Amended: Links added.
[2022-09-16] MEDS: proCHLORperazine 10 MG/2 ml inj IV PRN (08:10)
[2022-09-16] MEDS: vitamin A & D ointment-NF 1 APPLIC TUBE TP SCH (08:15)
[2022-09-16] MEDS: sodium bicarbonate 650mg tablet PO SCH ×3 (08:15→20:15)
[2022-09-16] MEDS ORDERED: PERFLUTREN PROTEIN-A MICROSPHR (Optison) 0.22 MG/ML 3ML VIAL IV ONE (09:00)
[2022-09-16 11:00] VITALS: BP 160/77
--- NOTE | 2022-09-16 11:14 | NUR ---
Paged Page Sent PAGER ID: [phone] MESSAGE: [id number] Flores- wbc trending down 16.9 to 14.7, CO2 improving 18.8, ProBNP elevated 1266. L. Levine CHUTE MAN
--- NOTE | 2022-09-16 17:24 | NUR ---
I AGREE WITH CATE PHYSICIST ASTROPHYSICS ASSESSMENT.
[2022-09-16 18:00] VITALS: BP 162/95
--- NOTE | 2022-09-16 18:25 | NUR ---
Problems reprioritized. Patient report given, questions answered & plan of care reviewed with Fartun GRAMAJO.
--- NOTE | 2022-09-16 18:30 | NUR ---
Patient in room PCU 3026. I have received report from Tone GRAMAJO and had the opportunity to ask questions and assume patient care.
[2022-09-16] MEDS: mupirocin 2% ointment 22GM TP SCH (20:00)
[2022-09-16] MEDS: Melatonin 3mg tablet PO SCH (20:15)
[2022-09-16] MEDS: metoprolol tartrate 12.5mg (1/2 tablet) PO SCH (20:17)
[2022-09-16 22:00] VITALS: BP 146/80
--- NOTE | 2022-09-17 04:29 | NUR ---
Agree with Jessica PUGGER HELPER assessment except where I documented my findings.
[2022-09-17] MEDS: ondansetron/PF 4mg/2ml inj IV PRN (05:33)
--- NOTE | 2022-09-17 06:42 | NUR ---
Problems reprioritized. Patient report given, questions answered & plan of care reviewed with Britt OSULLIVAN.
[2022-09-17 07:00] VITALS: BP 155/86
[2022-09-17 07:02] LABS: BASOPHILS # (AUTO) 0.1 X10'3 (0-0.2); BASOPHILS % (AUTO) 0.6 % (0-1); EOSINOPHILS # (AUTO) 0.3 X10'3 (0-0.9); EOSINOPHILS % (AUTO) 2.3 % (0-6); HEMATOCRIT 30.2 % (35.0-45.0); HEMOGLOBIN 9.9 g/dl (12.0-16.0); LYMPHOCYTES # (AUTO) 1.4 X10'3 (1.1-4.8); LYMPHOCYTES % (AUTO) 9.4 % (21-51); MEAN CORPUSCULAR HEMOGLOBIN 29.4 PG (27.0-31.0); MEAN CORPUSCULAR HGB CONC 32.8 g/dL (33.0-36.5); MEAN CORPUSCULAR VOLUME 89.7 FL (78-98); MEAN PLATELET VOLUME 6.9 FL (7.4-10.4); MONOCYTES # (AUTO) 1.2 X10'3 (0-0.9); MONOCYTES % (AUTO) 7.7 % (2-12); NEUTROPHILS # (AUTO) 12.1 X10'3 (1.8-7.7); PLATELET COUNT 365 X10'3 (140-440); RED BLOOD COUNT 3.37 X10'6 (4.20-5.60); RED CELL DISTRIBUTION WIDTH 14.1 % (11.5-14.5); WHITE BLOOD COUNT 15.1 X10'3 (4.5-11.0)
[2022-09-17 07:25] LABS: ALANINE AMINOTRANSFERASE 8 U/L (12-78); ALBUMIN 2.3 G/DL (3.4-5.0); ALBUMIN/GLOBULIN RATIO 0.5 (1.1-1.5); ALKALINE PHOSPHATASE 196 IU/L (46-116); ANION GAP 13 (8-16); ASPARTATE AMINO TRANSFERASE 43 U/L (10-37); BILIRUBIN,TOTAL 0.4 MG/DL (0.1-1.0); BLOOD UREA NITROGEN 79 MG/DL (7-18); BUN/CREATININE RATIO 11.4 (6.6-38.0); CALCIUM 8.7 MG/DL (8.5-10.1); CHLORIDE 105 MMOL/L (99-107); CREATININE 6.91 MG/DL (0.40-0.90); GLUCOSE 100 MG/DL (70-104); MAGNESIUM 1.9 MG/DL (1.5-2.4); POTASSIUM 4.2 MMOL/L (3.5-5.1); SODIUM 140 MMOL/L (135-145); TOTAL CARBON DIOXIDE 21.7 MMOL/L (24-32); TOTAL PROTEIN 7.3 G/DL (6.4-8.2); eGFR 6 ML/MIN
[2022-09-17] MEDS: K and/or MAG REPLACEMENT MC SCH ×2 (08:00→19:36)
[2022-09-17] MEDS: metoprolol tartrate 12.5mg (1/2 tablet) PO SCH ×2 (08:51→20:49)
[2022-09-17] MEDS: linezolid 600mg/300ml PREMIX 300 ML IV SCH (08:51)
[2022-09-17] MEDS: bumetanide 0.25mg/ml 4ml vial IV SCH ×2 (08:51→22:41)
[2022-09-17] MEDS: mupirocin 2% ointment 22GM TP SCH ×2 (08:51→20:48)
[2022-09-17] MEDS: vitamin A & D ointment-NF 1 APPLIC TUBE TP SCH (09:32)
[2022-09-17] MEDS: sodium bicarbonate 650mg tablet PO SCH ×3 (09:32→20:49)
[2022-09-17 11:00] VITALS: BP 157/83
[2022-09-17 15:00] VITALS: BP 142/72
[2022-09-17 18:00] VITALS: BP 162/87
--- NOTE | 2022-09-17 18:34 | NUR ---
Problems reprioritized. Patient report given, questions answered & plan of care reviewed with Fartun GRAMAJO. Patient resting in bed in no acute distress.
[2022-09-17] MEDS: linezolid 600mg tablet PO SCH (20:48)
[2022-09-17] MEDS: Melatonin 3mg tablet PO SCH (20:55)
[2022-09-17 22:00] VITALS: BP 152/81
[2022-09-17] MEDS: HYDROcodone/acetaminophen 10/325mg tab PO PRN (22:42)
[2022-09-18] MEDS: ondansetron/PF 4mg/2ml inj IV PRN ×2 (05:30→11:27)
[2022-09-18 07:00] VITALS: BP 135/75
[2022-09-18 07:41] LABS: BASOPHILS # (AUTO) 0.1 X10'3 (0-0.2); BASOPHILS % (AUTO) 0.8 % (0-1); EOSINOPHILS # (AUTO) 0.3 X10'3 (0-0.9); EOSINOPHILS % (AUTO) 2.2 % (0-6); HEMATOCRIT 29.8 % (35.0-45.0); HEMOGLOBIN 9.7 g/dl (12.0-16.0); LYMPHOCYTES # (AUTO) 1.3 X10'3 (1.1-4.8); LYMPHOCYTES % (AUTO) 8.6 % (21-51); MEAN CORPUSCULAR HEMOGLOBIN 29.2 PG (27.0-31.0); MEAN CORPUSCULAR HGB CONC 32.4 g/dL (33.0-36.5); MEAN PLATELET VOLUME 7.1 FL (7.4-10.4); MONOCYTES # (AUTO) 1.4 X10'3 (0-0.9); MONOCYTES % (AUTO) 9.1 % (2-12); NEUTROPHILS # (AUTO) 12.2 X10'3 (1.8-7.7); NEUTROPHILS % (AUTO) 79.3 % (42-75); PLATELET COUNT 375 X10'3 (140-440); RED BLOOD COUNT 3.31 X10'6 (4.20-5.60); RED CELL DISTRIBUTION WIDTH 13.8 % (11.5-14.5); WHITE BLOOD COUNT 15.4 X10'3 (4.5-11.0)
[2022-09-18] MEDS: bumetanide 0.25mg/ml 4ml vial IV SCH ×2 (07:53→20:13)
[2022-09-18 07:57] LABS: ALANINE AMINOTRANSFERASE 15 U/L (12-78); ALBUMIN 2.3 G/DL (3.4-5.0); ALBUMIN/GLOBULIN RATIO 0.5 (1.1-1.5); ALKALINE PHOSPHATASE 196 IU/L (46-116); ANION GAP 14 (8-16); ASPARTATE AMINO TRANSFERASE 48 U/L (10-37); BILIRUBIN,TOTAL 0.4 MG/DL (0.1-1.0); BLOOD UREA NITROGEN 78 MG/DL (7-18); BUN/CREATININE RATIO 12.5 (6.6-38.0); CALCIUM 8.6 MG/DL (8.5-10.1); CHLORIDE 104 MMOL/L (99-107); CREATININE 6.22 MG/DL (0.40-0.90); GLUCOSE 91 MG/DL (70-104); MAGNESIUM 1.8 MG/DL (1.5-2.4); PHOSPHORUS 8.3 MG/DL (2.3-4.5); POTASSIUM 4.3 MMOL/L (3.5-5.1); SODIUM 141 MMOL/L (135-145); TOTAL CARBON DIOXIDE 23.3 MMOL/L (24-32); TOTAL PROTEIN 7.2 G/DL (6.4-8.2); eGFR 7 ML/MIN
[2022-09-18] MEDS: vitamin A & D ointment-NF 1 APPLIC TUBE TP SCH (08:00)
[2022-09-18] MEDS: K and/or MAG REPLACEMENT MC SCH ×2 (08:00→19:08)
[2022-09-18] MEDS: mupirocin 2% ointment 22GM TP SCH ×2 (08:00→20:13)
[2022-09-18] MEDS: metoprolol tartrate 12.5mg (1/2 tablet) PO SCH ×2 (08:56→20:13)
[2022-09-18] MEDS: linezolid 600mg tablet PO SCH ×2 (08:56→20:13)
[2022-09-18 11:00] VITALS: BP 130/70
[2022-09-18 12:26] VITALS: BP 152/82
--- NOTE | 2022-09-18 15:26 | NUR ---
F/u 09/18: Pt PO improving mostly ~75-100% recent meals meeting estimated needs. LBM 09/16 per EMR. No nutrition interventions at this time. Will continue to follow. Recommendations: 1) Liberalize to regular diet once renal function improves 2) Routine bowel care 3) daily scaled weights Addendum: 09/18/22 at [address] Amended: Links added.
[2022-09-18] MEDS: ondansetron 4mg rapidly disintigrating tab PO PRN (17:22)
[2022-09-18 18:00] VITALS: BP 118/76
--- NOTE | 2022-09-18 18:18 | NUR ---
gave report to rose wiley
[2022-09-18] MEDS: Melatonin 3mg tablet PO SCH (20:13)
[2022-09-18 22:00] VITALS: BP 123/68
[2022-09-19] MEDS: ondansetron 4mg rapidly disintigrating tab PO PRN (05:49)
[2022-09-19 06:00] VITALS: BP 135/80
[2022-09-19 07:00] LABS: BASOPHILS # (AUTO) 0.1 X10'3 (0-0.2); EOSINOPHILS # (AUTO) 0.3 X10'3 (0-0.9); EOSINOPHILS % (AUTO) 2.4 % (0-6); HEMATOCRIT 28.2 % (35.0-45.0); LYMPHOCYTES # (AUTO) 1.3 X10'3 (1.1-4.8); LYMPHOCYTES % (AUTO) 10.1 % (21-51); MEAN CORPUSCULAR HEMOGLOBIN 28.5 PG (27.0-31.0); MEAN CORPUSCULAR HGB CONC 31.7 g/dL (33.0-36.5); MEAN CORPUSCULAR VOLUME 89.7 FL (78-98); MONOCYTES # (AUTO) 1.2 X10'3 (0-0.9); MONOCYTES % (AUTO) 9.4 % (2-12); NEUTROPHILS # (AUTO) 9.9 X10'3 (1.8-7.7); NEUTROPHILS % (AUTO) 77.1 % (42-75); PLATELET COUNT 390 X10'3 (140-440); RED BLOOD COUNT 3.15 X10'6 (4.20-5.60); RED CELL DISTRIBUTION WIDTH 13.8 % (11.5-14.5); WHITE BLOOD COUNT 12.8 X10'3 (4.5-11.0)
[2022-09-19 07:19] LABS: ALANINE AMINOTRANSFERASE 13 U/L (12-78); ALBUMIN 2.4 G/DL (3.4-5.0); ALBUMIN/GLOBULIN RATIO 0.5 (1.1-1.5); ALKALINE PHOSPHATASE 192 IU/L (46-116); ANION GAP 12 (8-16); ASPARTATE AMINO TRANSFERASE 38 U/L (10-37); BILIRUBIN,TOTAL 0.3 MG/DL (0.1-1.0); BLOOD UREA NITROGEN 78 MG/DL (7-18); BUN/CREATININE RATIO 13.5 (6.6-38.0); CALCIUM 8.6 MG/DL (8.5-10.1); CHLORIDE 105 MMOL/L (99-107); CREATININE 5.76 MG/DL (0.40-0.90); GLUCOSE 90 MG/DL (70-104); MAGNESIUM 1.7 MG/DL (1.5-2.4); PHOSPHORUS 7.8 MG/DL (2.3-4.5); SODIUM 141 MMOL/L (135-145); TOTAL PROTEIN 7.4 G/DL (6.4-8.2); eGFR 8 ML/MIN
[2022-09-19] MEDS: bumetanide 0.25mg/ml 4ml vial IV SCH ×2 (07:40→21:03)
[2022-09-19] MEDS: linezolid 600mg tablet PO SCH ×2 (07:43→21:03)
[2022-09-19] MEDS: metoprolol tartrate 12.5mg (1/2 tablet) PO SCH ×2 (07:47→21:03)
[2022-09-19] MEDS: K and/or MAG REPLACEMENT MC SCH ×2 (08:00→19:47)
[2022-09-19 10:03] VITALS: BP 141/82
[2022-09-19 14:00] VITALS: BP 135/73
[2022-09-19] MEDS: vitamin A & D ointment-NF 1 APPLIC TUBE TP SCH (15:15)
[2022-09-19] MEDS: mupirocin 2% ointment 22GM TP SCH ×2 (15:15→21:03)
[2022-09-19] MEDS: ondansetron/PF 4mg/2ml inj IV PRN (17:30)
[2022-09-19 18:00] VITALS: BP 144/79
--- NOTE | 2022-09-19 18:48 | NUR ---
Report to Linn OSULLIVAN
[2022-09-19] MEDS: Melatonin 3mg tablet PO SCH (21:03)
[2022-09-19 22:00] VITALS: BP 129/74
[2022-09-20 06:13] LABS: BASOPHILS # (AUTO) 0.1 X10'3 (0-0.2); BASOPHILS % (AUTO) 1.2 % (0-1); EOSINOPHILS # (AUTO) 0.3 X10'3 (0-0.9); EOSINOPHILS % (AUTO) 2.6 % (0-6); HEMATOCRIT 26.9 % (35.0-45.0); HEMOGLOBIN 8.8 g/dl (12.0-16.0); LYMPHOCYTES # (AUTO) 1.2 X10'3 (1.1-4.8); LYMPHOCYTES % (AUTO) 12.3 % (21-51); MEAN CORPUSCULAR HEMOGLOBIN 29.3 PG (27.0-31.0); MEAN CORPUSCULAR HGB CONC 32.7 g/dL (33.0-36.5); MEAN CORPUSCULAR VOLUME 89.6 FL (78-98); MEAN PLATELET VOLUME 6.9 FL (7.4-10.4); MONOCYTES # (AUTO) 1.1 X10'3 (0-0.9); MONOCYTES % (AUTO) 10.5 % (2-12); NEUTROPHILS # (AUTO) 7.4 X10'3 (1.8-7.7); NEUTROPHILS % (AUTO) 73.4 % (42-75); PLATELET COUNT 362 X10'3 (140-440); RED CELL DISTRIBUTION WIDTH 13.6 % (11.5-14.5); WHITE BLOOD COUNT 10.1 X10'3 (4.5-11.0)
[2022-09-20 06:36] LABS: ALANINE AMINOTRANSFERASE 23 U/L (12-78); ALBUMIN 2.3 G/DL (3.4-5.0); ALBUMIN/GLOBULIN RATIO 0.5 (1.1-1.5); ALKALINE PHOSPHATASE 241 IU/L (46-116); ANION GAP 10 (8-16); ASPARTATE AMINO TRANSFERASE 51 U/L (10-37); BILIRUBIN,TOTAL 0.3 MG/DL (0.1-1.0); BLOOD UREA NITROGEN 76 MG/DL (7-18); BUN/CREATININE RATIO 14.5 (6.6-38.0); CALCIUM 8.4 MG/DL (8.5-10.1); CHLORIDE 106 MMOL/L (99-107); CREATININE 5.25 MG/DL (0.40-0.90); GLUCOSE 101 MG/DL (70-104); MAGNESIUM 1.8 MG/DL (1.5-2.4); PHOSPHORUS 6.6 MG/DL (2.3-4.5); POTASSIUM 3.7 MMOL/L (3.5-5.1); SODIUM 142 MMOL/L (135-145); TOTAL CARBON DIOXIDE 26.1 MMOL/L (24-32); TOTAL PROTEIN 7.3 G/DL (6.4-8.2); eGFR 9 ML/MIN
[2022-09-20 07:20] VITALS: BP 116/54
[2022-09-20] MEDS: ondansetron 4mg rapidly disintigrating tab PO PRN (07:50)
[2022-09-20] MEDS: metoprolol tartrate 12.5mg (1/2 tablet) PO SCH ×2 (07:51→20:25)
[2022-09-20] MEDS: K and/or MAG REPLACEMENT MC SCH ×2 (08:00→20:00)
[2022-09-20] MEDS: bumetanide 0.25mg/ml 4ml vial IV SCH ×2 (08:00→20:25)
[2022-09-20] MEDS: mupirocin 2% ointment 22GM TP SCH ×2 (12:04→20:25)
[2022-09-20] MEDS: linezolid 600mg tablet PO SCH ×2 (12:09→20:25)
[2022-09-20] MEDS: vitamin A & D ointment-NF 1 APPLIC TUBE TP SCH (12:50)
--- NOTE | 2022-09-20 14:43 | NUR ---
WOUND INFECTION EDUCATION PROVIDED BY WOUND CARE 1. Patient instructed to call their primary doctor, or go the ED immediately if any of the following symptoms occur: * Increased pain in wound * Increase in drainage from the wound * Redness in the skin surrounding the wound * Warmth in the skin surrounding the wound * Bleeding from the wound * Temperature of 101 or greater 2. If any of these occur while in the hospital tell a nurse immediately. Addendum: 09/20/22 at 1443 by Smitha Sidhu LVN Amended: Links added.
[2022-09-20] MEDS: Melatonin 3mg tablet PO SCH (20:25)
[2022-09-20] MEDS: HYDROcodone/acetaminophen 10/325mg tab PO PRN (20:26)
[2022-09-20 20:28] VITALS: BP 124/66
[2022-09-20 22:30] VITALS: BP 130/71
[2022-09-21] MEDS: ondansetron/PF 4mg/2ml inj IV PRN (01:13)
[2022-09-21 01:49] VITALS: BP 129/75
[2022-09-21 06:00] VITALS: BP 135/75
[2022-09-21 06:10] LABS: BASOPHILS # (AUTO) 0.1 X10'3 (0-0.2); BASOPHILS % (AUTO) 1.6 % (0-1); EOSINOPHILS # (AUTO) 0.4 X10'3 (0-0.9); EOSINOPHILS % (AUTO) 4.2 % (0-6); HEMATOCRIT 28.2 % (35.0-45.0); HEMOGLOBIN 9.5 g/dl (12.0-16.0); LYMPHOCYTES # (AUTO) 1.6 X10'3 (1.1-4.8); LYMPHOCYTES % (AUTO) 18.7 % (21-51); MEAN CORPUSCULAR HGB CONC 33.6 g/dL (33.0-36.5); MEAN CORPUSCULAR VOLUME 89.1 FL (78-98); MEAN PLATELET VOLUME 6.6 FL (7.4-10.4); MONOCYTES # (AUTO) 0.8 X10'3 (0-0.9); MONOCYTES % (AUTO) 9.1 % (2-12); NEUTROPHILS # (AUTO) 5.7 X10'3 (1.8-7.7); NEUTROPHILS % (AUTO) 66.4 % (42-75); PLATELET COUNT 362 X10'3 (140-440); RED BLOOD COUNT 3.17 X10'6 (4.20-5.60); RED CELL DISTRIBUTION WIDTH 13.5 % (11.5-14.5); WHITE BLOOD COUNT 8.6 X10'3 (4.5-11.0)
[2022-09-21 06:24] LABS: ALANINE AMINOTRANSFERASE 20 U/L (12-78); ALBUMIN 2.5 G/DL (3.4-5.0); ALBUMIN/GLOBULIN RATIO 0.5 (1.1-1.5); ALKALINE PHOSPHATASE 207 IU/L (46-116); ANION GAP 10 (8-16); ASPARTATE AMINO TRANSFERASE 39 U/L (10-37); BILIRUBIN,TOTAL 0.3 MG/DL (0.1-1.0); BLOOD UREA NITROGEN 68 MG/DL (7-18); BUN/CREATININE RATIO 14.6 (6.6-38.0); CALCIUM 8.8 MG/DL (8.5-10.1); CHLORIDE 105 MMOL/L (99-107); CREATININE 4.65 MG/DL (0.40-0.90); GLUCOSE 88 MG/DL (70-104); MAGNESIUM 1.7 MG/DL (1.5-2.4); PHOSPHORUS 7.2 MG/DL (2.3-4.5); POTASSIUM 3.7 MMOL/L (3.5-5.1); SODIUM 142 MMOL/L (135-145); TOTAL CARBON DIOXIDE 26.6 MMOL/L (24-32); TOTAL PROTEIN 7.6 G/DL (6.4-8.2); eGFR 10 ML/MIN
--- NOTE | 2022-09-21 07:06 | NUR ---
Patient in room ORTHO 4023. I have received report from SHI Brown and had the opportunity to ask questions and assume patient care.
[2022-09-21] MEDS: K and/or MAG REPLACEMENT MC SCH ×2 (07:21→19:54)
[2022-09-21] MEDS: metoprolol tartrate 12.5mg (1/2 tablet) PO SCH ×2 (07:29→20:34)
[2022-09-21] MEDS: mupirocin 2% ointment 22GM TP SCH ×2 (07:29→20:29)
[2022-09-21] MEDS: linezolid 600mg tablet PO SCH ×2 (07:29→20:35)
[2022-09-21] MEDS: vitamin A & D ointment-NF 1 APPLIC TUBE TP SCH (07:29)
[2022-09-21] MEDS: ondansetron 4mg rapidly disintigrating tab PO PRN ×2 (07:30→21:51)
--- NOTE | 2022-09-21 08:54 | NUR ---
Smith care with appropriate smith wipes performed.
[2022-09-21 10:00] VITALS: BP 149/80
[2022-09-21] MEDS: bumetanide 0.25mg/ml 4ml vial IV SCH ×2 (10:13→20:34)
--- NOTE | 2022-09-21 14:39 | NUR ---
PAGER ID: [phone] MESSAGE: Yvonne [id number] RE: Jasmine Flores room 4023A - patient states fluid intake increased to 2500 ml by MD. No record of that. Do you want to increase fluid intake?
--- NOTE | 2022-09-21 14:40 | NUR ---
Pagecésar Ross who confirmed that fluid intake has been increased to 2500 ml.
--- NOTE | 2022-09-21 18:25 | NUR ---
Problems reprioritized. Patient report given, questions answered & plan of care reviewed with SHI Edwards.
[2022-09-21] MEDS: Melatonin 3mg tablet PO SCH (20:35)
[2022-09-21 22:00] VITALS: BP 125/69
[2022-09-22 02:00] VITALS: BP 141/67
[2022-09-22 06:00] VITALS: BP 122/69
[2022-09-22 06:06] LABS: BASOPHILS # (AUTO) 0.1 X10'3 (0-0.2); BASOPHILS % (AUTO) 1.5 % (0-1); EOSINOPHILS # (AUTO) 0.4 X10'3 (0-0.9); EOSINOPHILS % (AUTO) 4.5 % (0-6); HEMATOCRIT 30.1 % (35.0-45.0); HEMOGLOBIN 9.8 g/dl (12.0-16.0); LYMPHOCYTES # (AUTO) 1.8 X10'3 (1.1-4.8); LYMPHOCYTES % (AUTO) 19.8 % (21-51); MEAN CORPUSCULAR HGB CONC 32.6 g/dL (33.0-36.5); MEAN CORPUSCULAR VOLUME 88.8 FL (78-98); MEAN PLATELET VOLUME 6.6 FL (7.4-10.4); MONOCYTES # (AUTO) 0.8 X10'3 (0-0.9); MONOCYTES % (AUTO) 8.7 % (2-12); NEUTROPHILS # (AUTO) 5.9 X10'3 (1.8-7.7); NEUTROPHILS % (AUTO) 65.5 % (42-75); PLATELET COUNT 408 X10'3 (140-440); RED BLOOD COUNT 3.39 X10'6 (4.20-5.60); RED CELL DISTRIBUTION WIDTH 13.5 % (11.5-14.5)
[2022-09-22 06:27] LABS: ALANINE AMINOTRANSFERASE 22 U/L (12-78); ALBUMIN 2.7 G/DL (3.4-5.0); ALBUMIN/GLOBULIN RATIO 0.5 (1.1-1.5); ALKALINE PHOSPHATASE 212 IU/L (46-116); ANION GAP 11 (8-16); ASPARTATE AMINO TRANSFERASE 45 U/L (10-37); BILIRUBIN,TOTAL 0.4 MG/DL (0.1-1.0); BLOOD UREA NITROGEN 62 MG/DL (7-18); BUN/CREATININE RATIO 14.2 (6.6-38.0); CALCIUM 8.9 MG/DL (8.5-10.1); CHLORIDE 103 MMOL/L (99-107); CREATININE 4.36 MG/DL (0.40-0.90); GLUCOSE 88 MG/DL (70-104); MAGNESIUM 1.7 MG/DL (1.5-2.4); POTASSIUM 3.6 MMOL/L (3.5-5.1); SODIUM 142 MMOL/L (135-145); TOTAL CARBON DIOXIDE 28.4 MMOL/L (24-32); TOTAL PROTEIN 8.2 G/DL (6.4-8.2); eGFR 11 ML/MIN
[2022-09-22] MEDS: K and/or MAG REPLACEMENT MC SCH ×2 (08:00→20:00)
[2022-09-22] MEDS: linezolid 600mg tablet PO SCH ×2 (08:19→19:36)
[2022-09-22] MEDS: metoprolol tartrate 12.5mg (1/2 tablet) PO SCH ×2 (08:19→19:36)
[2022-09-22] MEDS: bumetanide 0.25mg/ml 4ml vial IV SCH (08:19)
[2022-09-22] MEDS: mupirocin 2% ointment 22GM TP SCH ×2 (08:21→19:37)
[2022-09-22] MEDS: vitamin A & D ointment-NF 1 APPLIC TUBE TP SCH (08:21)
--- NOTE | 2022-09-22 09:54 | NUR ---
Problems reprioritized. Patient report given, questions answered & plan of care reviewed with ROX Mixon. Per Sami Ortiz inpatient nursing aide I am handing off my patient load to ROX Mixon and I am now resource nurse.
--- NOTE | 2022-09-22 09:58 | NUR ---
Patient in room ORTHO 4023. I have received report from SHI Russell and had the opportunity to ask questions and assume patient care.
[2022-09-22 10:00] VITALS: BP 124/72
[2022-09-22] MEDS: ondansetron/PF 4mg/2ml inj IV PRN (12:29)
--- NOTE | 2022-09-22 15:19 | NUR ---
I agree with the Physical Assessment conducted and charted by Apurva Tovar Addendum: 09/22/22 at 1519 by Yvonne Lopez RN Amended: Links added.
[2022-09-22 18:00] VITALS: BP 138/74
--- NOTE | 2022-09-22 18:22 | NUR ---
Problems reprioritized. Patient report given, questions answered & plan of care reviewed with SHI Elizabeth.
--- NOTE | 2022-09-22 18:48 | NUR ---
Patient in room ORTHO 4023. I have received report from ROX Mixon and had the opportunity to ask questions and assume patient care.
[2022-09-22] MEDS: bumetanide 1mg tablet PO SCH (19:36)
[2022-09-22] MEDS: Melatonin 3mg tablet PO SCH (21:56)
[2022-09-22 22:00] VITALS: BP 142/78
[2022-09-23 06:00] VITALS: BP 179/83
--- NOTE | 2022-09-23 06:18 | NUR ---
Problems reprioritized. Patient report given, questions answered & plan of care reviewed with SHI Russell.
--- NOTE | 2022-09-23 06:26 | NUR ---
Patient in room ORTHO 4023. I have received report from SHI Elizabeth and had the opportunity to ask questions and assume patient care.
[2022-09-23] MEDS: ondansetron/PF 4mg/2ml inj IV PRN (06:33)
[2022-09-23 06:56] LABS: BASOPHILS # (AUTO) 0.1 X10'3 (0-0.2); BASOPHILS % (AUTO) 1.4 % (0-1); EOSINOPHILS # (AUTO) 0.4 X10'3 (0-0.9); EOSINOPHILS % (AUTO) 5.1 % (0-6); HEMATOCRIT 33.3 % (35.0-45.0); HEMOGLOBIN 10.7 g/dl (12.0-16.0); LYMPHOCYTES # (AUTO) 1.7 X10'3 (1.1-4.8); MEAN CORPUSCULAR HEMOGLOBIN 29.1 PG (27.0-31.0); MEAN CORPUSCULAR HGB CONC 32.2 g/dL (33.0-36.5); MEAN CORPUSCULAR VOLUME 90.3 FL (78-98); MEAN PLATELET VOLUME 6.7 FL (7.4-10.4); MONOCYTES # (AUTO) 0.7 X10'3 (0-0.9); MONOCYTES % (AUTO) 8.2 % (2-12); NEUTROPHILS # (AUTO) 5.2 X10'3 (1.8-7.7); NEUTROPHILS % (AUTO) 64.3 % (42-75); PLATELET COUNT 386 X10'3 (140-440); RED BLOOD COUNT 3.68 X10'6 (4.20-5.60); RED CELL DISTRIBUTION WIDTH 13.3 % (11.5-14.5); WHITE BLOOD COUNT 8.1 X10'3 (4.5-11.0)
[2022-09-23 07:05] LABS: ALANINE AMINOTRANSFERASE 16 U/L (12-78); ALBUMIN 2.9 G/DL (3.4-5.0); ALBUMIN/GLOBULIN RATIO 0.5 (1.1-1.5); ALKALINE PHOSPHATASE 193 IU/L (46-116); ANION GAP 13 (8-16); ASPARTATE AMINO TRANSFERASE 35 U/L (10-37); BILIRUBIN,TOTAL 0.4 MG/DL (0.1-1.0); BLOOD UREA NITROGEN 61 MG/DL (7-18); BUN/CREATININE RATIO 14.7 (6.6-38.0); CALCIUM 9.3 MG/DL (8.5-10.1); CHLORIDE 102 MMOL/L (99-107); CREATININE 4.15 MG/DL (0.40-0.90); GLUCOSE 84 MG/DL (70-104); MAGNESIUM 1.8 MG/DL (1.5-2.4); POTASSIUM 3.4 MMOL/L (3.5-5.1); SODIUM 142 MMOL/L (135-145); TOTAL CARBON DIOXIDE 27.2 MMOL/L (24-32); TOTAL PROTEIN 8.7 G/DL (6.4-8.2); eGFR 11 ML/MIN
[2022-09-23] MEDS: K and/or MAG REPLACEMENT MC SCH ×2 (08:00→20:00)
[2022-09-23] MEDS: bumetanide 1mg tablet PO SCH (08:41)
[2022-09-23] MEDS: metoprolol tartrate 12.5mg (1/2 tablet) PO SCH ×2 (08:42→20:40)
[2022-09-23] MEDS: mupirocin 2% ointment 22GM TP SCH ×2 (08:42→20:40)
[2022-09-23] MEDS: linezolid 600mg tablet PO SCH ×2 (08:42→20:40)
[2022-09-23] MEDS: vitamin A & D ointment-NF 1 APPLIC TUBE TP SCH (08:43)
[2022-09-23 10:00] VITALS: BP 145/78
[2022-09-23 13:18] LABS: H PYLORI ANTIBODY NEGATIVE (Neg)
[2022-09-23] MEDS ORDERED: magnesium Cl slow-release 64mg tablet PO PRN (15:05)
[2022-09-23] MEDS ORDERED: potassium Cl 20 mEq SR tablet PO PRN (15:05)
[2022-09-23] MEDS: potassium Cl 20 mEq SR tablet PO PRN ×2 (15:37→20:42)
[2022-09-23 18:00] VITALS: BP 128/75
--- NOTE | 2022-09-23 18:04 | NUR ---
Renal consult: Pt not on dialysis and electrolytes remain WNL with the exception of low K and elevated phos, currently not on a phos binder. Pt receiving PRN KCl replacement. Nephrology following. Per notes pt with persistent N/V today and to be NPO after midnight for EGD tomorrow. Nutrition education not appropriate at this time. Will f/u at another time and provide education as appropriate. Addendum: 09/23/22 at [address] Amended: Links added.
--- NOTE | 2022-09-23 18:22 | NUR ---
Problems reprioritized. Patient report given, questions answered & plan of care reviewed with SHI Elizabeth.
--- NOTE | 2022-09-23 18:38 | NUR ---
Patient in room ORTHO 4023. I have received report from SHI Russell and had the opportunity to ask questions and assume patient care.
[2022-09-23] MEDS: famotidine 20mg tablet PO SCH (20:40)
[2022-09-23] MEDS: furosemide 20MG tablet PO SCH (20:40)
[2022-09-23] MEDS: Melatonin 3mg tablet PO SCH (20:40)
[2022-09-23] MEDS ORDERED: diphenhydrAMINE 25mg capsule PO ONE (21:55)
[2022-09-23 22:00] VITALS: BP 149/85
[2022-09-24] VITALS (13 sets, daily range): BP systolic 120–168; BP diastolic 55–97
--- NOTE | 2022-09-24 06:12 | NUR ---
Problems reprioritized. Patient report given, questions answered & plan of care reviewed with SHI Funez.
[2022-09-24 06:13] LABS: BASOPHILS # (AUTO) 0.2 X10'3 (0-0.2); EOSINOPHILS # (AUTO) 0.4 X10'3 (0-0.9); EOSINOPHILS % (AUTO) 5.7 % (0-6); HEMATOCRIT 29.9 % (35.0-45.0); HEMOGLOBIN 9.8 g/dl (12.0-16.0); LYMPHOCYTES # (AUTO) 1.8 X10'3 (1.1-4.8); LYMPHOCYTES % (AUTO) 23.5 % (21-51); MEAN CORPUSCULAR HEMOGLOBIN 29.2 PG (27.0-31.0); MEAN CORPUSCULAR HGB CONC 32.7 g/dL (33.0-36.5); MEAN CORPUSCULAR VOLUME 89.3 FL (78-98); MEAN PLATELET VOLUME 6.6 FL (7.4-10.4); MONOCYTES # (AUTO) 0.7 X10'3 (0-0.9); MONOCYTES % (AUTO) 9.4 % (2-12); NEUTROPHILS # (AUTO) 4.5 X10'3 (1.8-7.7); NEUTROPHILS % (AUTO) 59.4 % (42-75); PLATELET COUNT 335 X10'3 (140-440); RED BLOOD COUNT 3.34 X10'6 (4.20-5.60); RED CELL DISTRIBUTION WIDTH 13.2 % (11.5-14.5); WHITE BLOOD COUNT 7.6 X10'3 (4.5-11.0)
[2022-09-24 06:14] LABS: ALANINE AMINOTRANSFERASE 14 U/L (12-78); ALBUMIN 2.7 G/DL (3.4-5.0); ALBUMIN/GLOBULIN RATIO 0.5 (1.1-1.5); ALKALINE PHOSPHATASE 148 IU/L (46-116); ANION GAP 11 (8-16); ASPARTATE AMINO TRANSFERASE 28 U/L (10-37); BILIRUBIN,TOTAL 0.3 MG/DL (0.1-1.0); BLOOD UREA NITROGEN 59 MG/DL (7-18); BUN/CREATININE RATIO 17.2 (6.6-38.0); CALCIUM 9.1 MG/DL (8.5-10.1); CHLORIDE 106 MMOL/L (99-107); CREATININE 3.43 MG/DL (0.40-0.90); GLUCOSE 90 MG/DL (70-104); MAGNESIUM 1.9 MG/DL (1.5-2.4); POTASSIUM 3.6 MMOL/L (3.5-5.1); SODIUM 144 MMOL/L (135-145); TOTAL CARBON DIOXIDE 26.9 MMOL/L (24-32); TOTAL PROTEIN 7.9 G/DL (6.4-8.2); eGFR 14 ML/MIN
[2022-09-24] MEDS: K and/or MAG REPLACEMENT MC SCH ×2 (08:00→20:00)
[2022-09-24] MEDS: famotidine 20mg tablet PO SCH ×2 (08:23→19:57)
[2022-09-24] MEDS: furosemide 20MG tablet PO SCH ×2 (08:23→19:56)
[2022-09-24] MEDS: metoprolol tartrate 12.5mg (1/2 tablet) PO SCH ×2 (08:24→19:59)
[2022-09-24] MEDS: linezolid 600mg tablet PO SCH ×2 (08:24→19:57)
[2022-09-24] MEDS: vitamin A & D ointment-NF 1 APPLIC TUBE TP SCH (08:25)
[2022-09-24] MEDS: mupirocin 2% ointment 22GM TP SCH ×2 (08:25→19:59)
[2022-09-24] MEDS: ondansetron 4mg rapidly disintigrating tab PO PRN (08:26)
--- NOTE | 2022-09-24 12:00 | NUR ---
F/u 09/24: Pt seen by DAMIR for written/verbal renal diet ed w/ RD contact information provided. RD reviewed emphasis on Phos-containing foods and answered pt questions regarding what qualifies as fluids since pt reports will be on 2.5L fluid restriction at home. RD encouraged pt to contact dietitian's office if further nutrition questions/concerns. Addendum: 09/24/22 at [address] Amended: Links added.
--- NOTE | 2022-09-24 16:19 | NUR ---
perinatal tech notified of MD ordered gallblader ultrasound. states pt is on her radar
[2022-09-24] MEDS ORDERED: MIDAZolam 1 MG/ML 5ML VIAL ONE (16:50)
[2022-09-24] MEDS ORDERED: LIDOcaine Viscous 15ml cup ONE (16:50)
[2022-09-24] MEDS ORDERED: fentaNYL/PF 50MCG/1 ML 2ML syringe ONE (16:50)
[2022-09-24] MEDS ORDERED: POTA-206 PO (18:39)
[2022-09-24] MEDS ORDERED: FAMO20TA8 PO (18:39)
[2022-09-24] MEDS ORDERED: MELA3TAB39 PO (18:39)
[2022-09-24] MEDS ORDERED: LOP12.5T PO (18:39)
[2022-09-24] MEDS ORDERED: VITS42.53 TP (18:39)
[2022-09-24] MEDS ORDERED: FURO20TA4 PO (18:39)
[2022-09-24] MEDS ORDERED: MUPI22OI30 TP (18:39)
[2022-09-24] MEDS ORDERED: ONDA4TAB12 PO (18:44)
[2022-09-24] MEDS: Melatonin 3mg tablet PO SCH (20:20)
[2022-09-25 02:00] VITALS: BP 132/77
[2022-09-25 06:00] VITALS: BP 139/64
--- NOTE | 2022-09-25 06:20 | NUR ---
Patient in room ORTHO 4023. I have received report from Deisi OSULLIVAN and had the opportunity to ask questions and assume patient care.
[2022-09-25 06:24] LABS: BASOPHILS # (AUTO) 0.2 X10'3 (0-0.2); EOSINOPHILS # (AUTO) 0.5 X10'3 (0-0.9); HEMOGLOBIN 10.6 g/dl (12.0-16.0); LYMPHOCYTES # (AUTO) 1.9 X10'3 (1.1-4.8); MEAN PLATELET VOLUME 6.4 FL (7.4-10.4)
[2022-09-25 06:28] LABS: BASOPHILS % (AUTO) 1.9 % (0-1); EOSINOPHILS % (AUTO) 5.8 % (0-6); HEMATOCRIT 31.7 % (35.0-45.0); LYMPHOCYTES % (AUTO) 23.3 % (21-51); MEAN CORPUSCULAR HEMOGLOBIN 29.7 PG (27.0-31.0); MEAN CORPUSCULAR HGB CONC 33.5 g/dL (33.0-36.5); MEAN CORPUSCULAR VOLUME 88.5 FL (78-98); MONOCYTES # (AUTO) 0.7 X10'3 (0-0.9); MONOCYTES % (AUTO) 8.1 % (2-12); NEUTROPHILS % (AUTO) 60.9 % (42-75); PLATELET COUNT 358 X10'3 (140-440); RED BLOOD COUNT 3.59 X10'6 (4.20-5.60); WHITE BLOOD COUNT 8.2 X10'3 (4.5-11.0)
[2022-09-25 06:42] LABS: ALANINE AMINOTRANSFERASE 18 U/L (12-78); ALBUMIN 3.1 G/DL (3.4-5.0); ALBUMIN/GLOBULIN RATIO 0.6 (1.1-1.5); ALKALINE PHOSPHATASE 158 IU/L (46-116); ANION GAP 11 (8-16); ASPARTATE AMINO TRANSFERASE 35 U/L (10-37); BILIRUBIN,TOTAL 0.3 MG/DL (0.1-1.0); BLOOD UREA NITROGEN 52 MG/DL (7-18); BUN/CREATININE RATIO 15.2 (6.6-38.0); CALCIUM 9.3 MG/DL (8.5-10.1); CHLORIDE 103 MMOL/L (99-107); CREATININE 3.42 MG/DL (0.40-0.90); GLUCOSE 97 MG/DL (70-104); MAGNESIUM 1.8 MG/DL (1.5-2.4); POTASSIUM 3.6 MMOL/L (3.5-5.1); SODIUM 140 MMOL/L (135-145); TOTAL CARBON DIOXIDE 25.9 MMOL/L (24-32); TOTAL PROTEIN 8.7 G/DL (6.4-8.2); eGFR 14 ML/MIN
--- NOTE | 2022-09-25 06:44 | NUR ---
report given to Germaine OSULLIVAN
[2022-09-25] MEDS: K and/or MAG REPLACEMENT MC SCH (07:20)
[2022-09-25] MEDS: linezolid 600mg tablet PO SCH (07:22)
[2022-09-25] MEDS: vitamin A & D ointment-NF 1 APPLIC TUBE TP SCH (07:22)
[2022-09-25] MEDS: mupirocin 2% ointment 22GM TP SCH (07:22)
[2022-09-25 07:23] VITALS: BP_SYST 139
[2022-09-25] MEDS: ondansetron 4mg rapidly disintigrating tab PO PRN (07:23)
[2022-09-25] MEDS: furosemide 20MG tablet PO SCH (07:23)
[2022-09-25] MEDS: metoprolol tartrate 12.5mg (1/2 tablet) PO SCH (07:23)
[2022-09-25] MEDS: famotidine 20mg tablet PO SCH (07:23)
--- NOTE | 2022-09-25 07:40 | NUR ---
Pt dc to outpatient wound care clinic, pt wheeled down by this nurse. PIV dc with no complications or s/sx of infiltration or infections. Pt VSS, no c/o pain or discomfort noted at time of dc. Pt did have complaint of slight nausea, treated effectively with PO zofran. All discharge instructions and education understood and pt verbally expressed understanding.
== END 2022-09-25 09:05 | disposition home health service (06) | DRG 383 ==
LOC: ER 18:41 → ED HOLD 09-08 03:48 → PCU 3S 09-08 06:57 → ORTHO 4S 09-18 12:15
PROVIDERS: ADMIT Internal Medicine; ATTEND Family Medicine
PROC: 3E02340 Introduction of Influenza Vaccine into Muscle, Percutaneous Approach (ICD-10-PCS; 2022-09-11)
PROC: 0DB98ZX Excision of Duodenum, Via Natural or Artificial Opening Endoscopic, Diagnostic (ICD-10-PCS; principal; 2022-09-23)
PROC: 0DB78ZX Excision of Stomach, Pylorus, Via Natural or Artificial Opening Endoscopic, Diagnostic (ICD-10-PCS; 2022-09-23)
PROC: 0DB48ZX Excision of Esophagogastric Junction, Via Natural or Artificial Opening Endoscopic, Diagnostic (ICD-10-PCS; 2022-09-23)
DX: L03.116 Cellulitis of left lower limb (principal); N17.0 Acute kidney failure with tubular necrosis; A46 Erysipelas; N13.30 Unspecified hydronephrosis; E87.20 Acidosis, unspecified; K52.9 Noninfective gastroenteritis and colitis, unspecified; K21.00 Gastro-esophageal reflux disease with esophagitis, without bleeding; N93.9 Abnormal uterine and vaginal bleeding, unspecified; E87.1 Hypo-osmolality and hyponatremia; E87.6 Hypokalemia; N18.9 Chronic kidney disease, unspecified; R03.0 Elevated blood-pressure reading, without diagnosis of hypertension; E66.01 Morbid (severe) obesity due to excess calories; K29.70 Gastritis, unspecified, without bleeding; K29.80 Duodenitis without bleeding; Z68.41 Body mass index [BMI] 40.0-44.9, adult; Z79.899 Other long term (current) drug therapy; Z88.1 Allergy status to other antibiotic agents; Z23 Encounter for immunization
CPT/HCPCS: 36415; 43239; 71045; 73700; 74176; 76700; 76770; 76856; 80048; 80053; 80202; 81001; 82570; 83605; 83735; 83880; 84100; 84145; 84156; 84300; 85007; 85025; 86677; 87040; 87081; 87207; 90686; 93005; 93306; 93971; 93976; 96361; 96374; 96376; 97116; 97161; 97530; 99152; 99285; A4620; A6222; A6223; A6250; A6253; A6260; A6446; A6449; G0378; J0360; J0690; J0780; J2020; J2250; J2405; J2543; J3010; J3370; J3490; J7030; Q0163

== ENCOUNTER 2024-02-15 18:53 | Inpatient (IN) | payer MEDICAID ==
[~2024-02-15] VITALS: Ht 160 cm; Wt 104.1 kg
[~2024-02-15 18:53] MED LIST changes: +FAMO20TA8 PO; +FURO20TA4 PO; +LOP12.5T PO; +MELA3TAB39 PO; +MUPI22OI30 TP; +ONDA-243 PO; +POTA-206 PO; -SULF1TAB49 PO; +VITS42.53 TP
[2024-02-15 20:00] LABS: BASOPHILS # (AUTO) 0.1 X10'3 (0-0.2); BASOPHILS % (AUTO) 0.4 % (0-1); EOSINOPHILS % (AUTO) 0.2 % (0-6); HEMATOCRIT 40.3 % (35.0-45.0); HEMOGLOBIN 13.7 g/dl (12.0-16.0); LYMPHOCYTES # (AUTO) 1.3 X10'3 (1.1-4.8); LYMPHOCYTES % (AUTO) 5.3 % (21-51); MEAN CORPUSCULAR HEMOGLOBIN 30.5 PG (27.0-31.0); MEAN CORPUSCULAR HGB CONC 34.1 g/dL (33.0-36.5); MEAN CORPUSCULAR VOLUME 89.4 FL (78-98); MEAN PLATELET VOLUME 7.5 FL (7.4-10.4); MONOCYTES # (AUTO) 1.2 X10'3 (0-0.9); MONOCYTES % (AUTO) 4.7 % (2-12); NEUTROPHILS # (AUTO) 22.5 X10'3 (1.8-7.7); NEUTROPHILS % (AUTO) 89.4 % (42-75); PLATELET COUNT 333 X10'3 (140-440); RED CELL DISTRIBUTION WIDTH 12.5 % (11.5-14.5)
[2024-02-15 20:07] LABS: ALBUMIN 3.9 G/DL (3.4-5.0); ANION GAP 11 (8-16); BLOOD UREA NITROGEN 14 MG/DL (7-18); BUN/CREATININE RATIO 12.8 (10.0-20.0); CALCIUM 9.3 MG/DL (8.5-10.1); CHLORIDE 98 MMOL/L (99-107); CREATININE 1.09 MG/DL (0.40-0.90); GLUCOSE 134 MG/DL (70-104); POTASSIUM 3.6 MMOL/L (3.5-5.1); SODIUM 133 MMOL/L (135-145); TOTAL CARBON DIOXIDE 23.8 MMOL/L (24-32); eCRCL 48 ML/MIN; eGFR 52 ML/MIN
[2024-02-15 20:10] LABS: BILIRUBIN,URINE NEGATIVE (Neg); CLARITY,URINE CLEAR (Clear); COLOR,URINE YELLOW (Yellow); GLUCOSE, URINE NEGATIVE (Neg); KETONES,URINE NEGATIVE (Neg); LEUKOCYTE ESTERASE ,URINE TRACE (Neg); NITRITES, URINE NEGATIVE (Neg); OCCULT BLOOD,URINE LARGE (Neg); PROTEIN,URINE 100 mg/dl (Neg); UROBILINOGEN,URINE 0.2 E.U/dL (0.2-1.0)
[2024-02-15 20:19] LABS: WHITE BLOOD COUNT 25.2 X10'3 (4.5-11.0)
[2024-02-15 20:22] LABS: APTT 25 SECONDS (22-32); PROTHROMBIN TIME 10.4 SECONDS (9.0-12.0)
[2024-02-15 20:26] LABS: ALANINE AMINOTRANSFERASE 28 U/L (12-78); ALKALINE PHOSPHATASE 109 IU/L (46-116); ASPARTATE AMINO TRANSFERASE 40 U/L (10-37); BILIRUBIN,TOTAL 0.6 MG/DL (0.1-1.0); TOTAL PROTEIN 7.9 G/DL (6.4-8.2)
[2024-02-15 20:32] LABS: SQUAMOUS EPITHELIAL CELL,UR FEW /LPF (FEW); UA COLLECTION TYPE CLN CATCH MIDSTREAM
[2024-02-15 20:33] LABS: BACTERIA,URINE FEW /HPF (Neg); YEAST FEW /HPF (NEGATIVE)
[2024-02-15 20:46] LABS: PLATELET ESTIMATE NORMAL; TOTAL CELLS COUNTED 100
[2024-02-15] MEDS: CefTRIAXone/D5W-Rocephin 1gm 50 ML IV ONE (22:04)
[2024-02-15] MEDS: acetaminophen 325mg tablet PO ONE (22:04)
[2024-02-15] MEDS: normal saline 1000ML IV soln IVB ONE (22:05)
[2024-02-16] VITALS (8 sets, daily range): BP systolic 121–146; BP diastolic 64–78; PULSE 72–88; RESP 14–18; TEMP 97.8–99.9; O2SAT 97–98
[2024-02-16] MEDS ORDERED: MELO-102 PO (01:56)
[2024-02-16] MEDS ORDERED: potassium Cl 20 mEq SR tablet PO PRN ×2 (02:15)
[2024-02-16] MEDS ORDERED: magnesium Cl slow-release 64mg tablet PO PRN (02:15)
[2024-02-16] MEDS ORDERED: magnesium sulf-water 4G/100mL 100 ML IV PRN (02:15)
[2024-02-16] MEDS ORDERED: magnesium sulf-water 2g/50mL 50 ML IV PRN (02:15)
[2024-02-16] MEDS ORDERED: magnesium hydroxide 30ml (MOM) UD suspension PO PRN (02:15)
[2024-02-16] MEDS ORDERED: morphine 2 MG/ML inj. syringe IV PRN ×2 (02:15)
[2024-02-16] MEDS ORDERED: acetaminophen 325mg tablet PO PRN (02:15)
[2024-02-16] MEDS ORDERED: potassium Cl 40MEQ/1/2NS 520ml 520 ML IV PRN (02:15)
[2024-02-16] MEDS ORDERED: mag hydrox/Alum hydrox/simeth 30ml oral suspension PO PRN (02:15)
[2024-02-16] MEDS ORDERED: vancomycin/NS 1 GM ADD-VANTAGE 250 ML IV ONE (02:40)
[2024-02-16 03:11] LABS: MAGNESIUM 1.8 MG/DL (1.5-2.4); POTASSIUM 3.6 MMOL/L (3.5-5.1)
[2024-02-16 03:13] LABS: D-DIMER 0.68 MG/L FEU (0-0.50)
[2024-02-16] MEDS: vancomycin/NS 1 GM ADD-VANTAGE 250 ML IV SCH ×2 (05:24→20:21)
[2024-02-16] MEDS: K and/or MAG REPLACEMENT MC SCH (08:00)
[2024-02-16] MEDS: metoprolol tartrate 12.5mg (1/2 tablet) PO SCH (08:18)
[2024-02-16] MEDS: famotidine 20mg tablet PO SCH (08:19)
[2024-02-16] MEDS: heparin, porcine 5000 units/ml vial SQ SCH (08:19)
[2024-02-16] MEDS: CefTRIAXone/D5W-Rocephin 1gm 50 ML IV SCH (08:25)
[2024-02-16] MEDS: mupirocin 2% ointment 22GM TP SCH (08:27)
[2024-02-16] MEDS: cefepime 1GM/NS ADD-VANTAGE 100 ML IV SCH (16:45)
[2024-02-16] MEDS: lactobacillus rhamnosus 10,000 MMU CELLS/CAPSULE PO SCH (20:02)
[2024-02-16] MEDS: Melatonin 3mg tablet PO SCH (20:23)
[2024-02-17 05:00] VITALS: BP 143/73; PULSE 67; RESP 14; TEMP 97; O2SAT 98
[2024-02-17 06:54] LABS: BASOPHILS # (AUTO) 0.1 X10'3 (0-0.2); EOSINOPHILS # (AUTO) 0.2 X10'3 (0-0.9); LYMPHOCYTES # (AUTO) 2.6 X10'3 (1.1-4.8)
[2024-02-17 06:56] LABS: BASOPHILS % (AUTO) 0.8 % (0-1); EOSINOPHILS % (AUTO) 1.9 % (0-6); HEMATOCRIT 41.5 % (35.0-45.0); HEMOGLOBIN 13.6 g/dl (12.0-16.0); LYMPHOCYTES % (AUTO) 21.7 % (21-51); MEAN CORPUSCULAR HGB CONC 32.9 g/dL (33.0-36.5); MEAN CORPUSCULAR VOLUME 91.2 FL (78-98); MEAN PLATELET VOLUME 7.9 FL (7.4-10.4); MONOCYTES # (AUTO) 1.1 X10'3 (0-0.9); MONOCYTES % (AUTO) 9.4 % (2-12); NEUTROPHILS # (AUTO) 7.8 X10'3 (1.8-7.7); NEUTROPHILS % (AUTO) 66.2 % (42-75); PLATELET COUNT 268 X10'3 (140-440); RED BLOOD COUNT 4.55 X10'6 (4.20-5.60); RED CELL DISTRIBUTION WIDTH 12.8 % (11.5-14.5); WHITE BLOOD COUNT 11.8 X10'3 (4.5-11.0)
[2024-02-17 06:57] LABS: ALBUMIN 2.9 G/DL (3.4-5.0); ANION GAP 9 (8-16); BLOOD UREA NITROGEN 13 MG/DL (7-18); BUN/CREATININE RATIO 14.4 (10.0-20.0); CALCIUM 8.6 MG/DL (8.5-10.1); CHLORIDE 107 MMOL/L (99-107); GLUCOSE 99 MG/DL (70-104); MAGNESIUM 2.2 MG/DL (1.5-2.4); POTASSIUM 3.8 MMOL/L (3.5-5.1); SODIUM 137 MMOL/L (135-145); TOTAL CARBON DIOXIDE 21.4 MMOL/L (24-32); eCRCL 58 ML/MIN; eGFR 65 ML/MIN
[2024-02-17 07:49] LABS: HEMOGLOBIN A1C 5.6 % (4.5-6.2)
[2024-02-17 10:00] VITALS: BP 138/80; PULSE 71; RESP 16; TEMP 98.1; O2SAT 98
[2024-02-17] MEDS: ondansetron/PF 4mg/2ml inj IV PRN (11:01)
[2024-02-17 18:00] VITALS: BP 134/69; PULSE 62; RESP 16; TEMP 98.6; O2SAT 99
[2024-02-17] MEDS: VANCOMYCIN LEVEL IV ONE (18:30)
[2024-02-17] MEDS: VANCOmycin 1250MG/NS 250ml Bag 250 ML IV SCH (20:19)
[2024-02-17 22:00] VITALS: BP 135/75; PULSE 59; RESP 18; TEMP 98.1; O2SAT 100
[2024-02-18 06:00] VITALS: BP 140/85; PULSE 54; RESP 18; TEMP 97.8; O2SAT 99
[2024-02-18 06:12] LABS: ALBUMIN 2.6 G/DL (3.4-5.0); ANION GAP 7 (8-16); BLOOD UREA NITROGEN 15 MG/DL (7-18); BUN/CREATININE RATIO 17.4 (10.0-20.0); CALCIUM 8.9 MG/DL (8.5-10.1); CHLORIDE 107 MMOL/L (99-107); CREATININE 0.86 MG/DL (0.40-0.90); GLUCOSE 95 MG/DL (70-104); MAGNESIUM 2.2 MG/DL (1.5-2.4); SODIUM 139 MMOL/L (135-145); TOTAL CARBON DIOXIDE 24.8 MMOL/L (24-32); eCRCL 60 ML/MIN; eGFR 68 ML/MIN
[2024-02-18 07:36] VITALS: RESP 16
[2024-02-18 10:00] VITALS: BP 130/75; PULSE 67; RESP 14; TEMP 97.9; O2SAT 96
[2024-02-18 10:51] LABS: HEMATOCRIT 34.9 % (37.7-47.9); RED BLOOD COUNT 3.91 X10'6 (3.60-4.90); WHITE BLOOD COUNT 8.1 X10'3 (4.5-11.0)
[2024-02-18 10:52] LABS: BASOPHILS # (AUTO) 0.1 X10'3 (0-1); BASOPHILS % 1 % (0-2); EOSINOPHILS # (AUTO) 0.5 X10'3 (0-0.9); EOSINOPHILS % (AUTO) 6 % (0-6); LYMPHOCYTES # (AUTO) 2.8 X10'3 (1.1-4.8); LYMPHOCYTES % 34 % (24-44); MEAN CORPUSCULAR HEMOGLOBIN 30.6 PG (27-31.2); MEAN CORPUSCULAR HGB CONC 34.3 % (32-36); MEAN CORPUSCULAR VOLUME 89.3 FL (81-97); MONOCYTES # (AUTO) 0.9 X10'3 (0-0.9); MONOCYTES % 11 % (0-12); NEUTROPHILS # (AUTO) 3.9 X10'3 (1.8-7.7); PLATELET COUNT 267 X10'3 (130-400); RED CELL DISTRIBUTION WIDTH 12.9 % (11-16); SEGMENTED NEUTROPHILS % 48 % (36-66)
[2024-02-18] MEDS ORDERED: LACT1CAP26 PO (12:33)
[2024-02-18] MEDS ORDERED: LINE600T11 PO (12:33)
[2024-02-19] MEDS ORDERED: VANCOMYCIN LEVEL IV ONE (06:30)
== END 2024-02-18 13:59 | disposition home or self-care (01) | DRG 720 ==
LOC: ER 18:54 → UNDOADMIN 02-16 02:18 → ED HOLD 02-16 02:18 → ORTHO 4S 02-16 04:31 → ED HOLD 02-16 04:31 → UNDODISIN 02-18 13:59
PROVIDERS: ADMIT Internal Medicine Critical Care Medicine; ATTEND Family Medicine
DX: A41.9 Sepsis, unspecified organism (principal); I13.0 Hypertensive heart and chronic kidney disease with heart failure and stage 1 through stage 4 chronic kidney disease, or unspecified chronic kidney disease; I50.22 Chronic systolic (congestive) heart failure; L03.116 Cellulitis of left lower limb; E78.5 Hyperlipidemia, unspecified; Z20.822 Contact with and (suspected) exposure to COVID-19; Z88.8 Allergy status to other drugs, medicaments and biological substances; Z88.2 Allergy status to sulfonamides; N18.2 Chronic kidney disease, stage 2 (mild); Z88.0 Allergy status to penicillin
CPT/HCPCS: 36415; 71045; 80048; 80053; 80202; 81001; 83036; 83605; 83735; 84132; 84145; 85007; 85025; 85379; 85610; 85730; 87040; 87081; 87088; 87502; 87503; 87811; 93306; 93971; 96365; 99285; G0378; J0692; J0696; J1644; J2405; J3370; J7030; J7040